=== PATIENT | male | born 1990 | race Caucasian/White ===

== ENCOUNTER 2019-08-27 18:54 | Emergency (ER) | payer SELFPAY ==
[2019-08-27 19:08] VITALS: TEMP 39.3; BMI 22.1
[2019-08-27 19:20] VITALS: BP 129/86; PULSE 124; RESP 18; TEMP 39.3; O2SAT 96
--- NOTE | 2019-08-27 19:22 | W.ED.GENADLT ---
HPI - General Adult General: Chief complaint: General Medical Stated complaint: sore throat Time Seen by Provider: 08/27/19 19:08 History of Present Illness: HPI narrative: Patient complains about sore throat body aches and chills x1 day. MD complaint: flu Onset (ago): day(s) (1) Associated symptoms: Reports fevers/chills; Deny chest pain, dyspnea, headache(s), nausea, rash or vomiting Review of Systems Const: Reports: fever, chills and body aches Eyes: Denies: change in vision or blurry vision ENMT: Reports: throat pain; Denies: nasal congestion Card: Denies: chest pain or shortness of breath on exertion Resp: Denies: shortness of breath, productive cough or non-productive cough GI: Denies: abdominal pain, nausea or vomiting : Denies: difficulty urinating Musc: Denies: extremity pain Skin/Breast: Denies: rash Neuro: Denies: headache Psych: Denies: anxiety or depression Mendel/Lymph: Denies: easy bruising PFSH ED PFSH: Social History Smoking and tobacco status: current every day smoker Physical Exam Const: COMMON NORMALS: no apparent distress, average body habitus and oriented x3 HENMT: COMMON NORMALS: normocephalic HEAD & SCALP: normal to inspection and normocephalic FACE & SINUS: normal facial exam Eye: COMMON NORMALS: conjunctivae normal GENERAL EYE: normal appearance of both eyes CONJUNCTIVA: Yes conjunctivae normal Neck/C-Spine: COMMON NORMALS: no JVD Chest: COMMONS NORMALS: inspection of chest normal Resp: COMMON NORMALS: normal respiratory effort and clear to auscultation bilaterally AUSCULTATION: clear to auscultation bilaterally Cardio: COMMON NORMALS: no JVD and regular rhythm RATE: tachycardic RHYTHM: regular rhythm GI: COMMON NORMALS: normal to inspection, nondistended, normoactive bowel sounds Extremity: COMMON NORMALS: normal to inspection and full ROM Neuro: COMMON NORMALS: oriented x3 Course Vital Signs: Vital signs: Vital Signs Temperature 102.7 F H 08/27/19 19:20 Pulse Rate 124 H 08/27/19 19:20 Respiratory Rate 18 08/27/19 19:20 Blood Pressure 129/86 08/27/19 19:20 Pulse Oximetry 96 08/27/19 19:20 MDM - General Adult Lab Data: Labs: Lab Results 08/27/19 Range/Units 19:15 Group A Strep Rapi d Negative (Negative) Discharge Plan Discharge Prescriptions: No Action No Known Home Medications RF: 0 Coding Level of Care Code ED Computer Analyst for Chg Fwd Exam Comprehensive
[2019-08-27 20:00] LABS: Rapid Strep A Test Negative (Negative)
[2019-08-27 20:12] LABS: Influenza A by IFA Negative (Negative); Influenza B by IFA Negative (Negative)
[2019-08-27 20:32] VITALS: BP 107/70; PULSE 127; RESP 18; TEMP 39.1; O2SAT 95
== END 2019-08-27 20:34 | disposition home or self-care (01) ==
PROVIDERS: Emergency Provider Nurse Practitioner Family
DX: J02.9 Acute pharyngitis, unspecified (principal); R50.9 Fever, unspecified; F17.200 Nicotine dependence, unspecified, uncomplicated
CPT/HCPCS: 87081; 87804; 87880; 99282; 99283

== ENCOUNTER 2020-12-21 09:05 | Emergency (ER) | payer MEDICAID, SELFPAY ==
--- NOTE | 2020-12-21 09:09 | XR_ITS ---
WS: [id number] Portable AP upright chest, 12/21/2020 Clinical Data: n/v and body aches Comparison: None. Findings: No nodules, masses or effusions are seen. The heart is normal. The pulmonary vascularity is not increased. No pneumonia or pneumothorax is seen. XR/XR chest 1V portable [id number] Impression: Negative chest.
[2020-12-21 09:12] VITALS: BP 127/87; PULSE 69; RESP 18; TEMP 36.8; O2SAT 97; BMI 25.1
--- NOTE | 2020-12-21 09:20 | ED_ITS ---
HPI - Nausea/Vomiting/Diarrhea General: Chief complaint: Nausea/Vomiting/Diarrhea Stated complaint: N/V, body ache Time Seen by Provider: 12/21/20 09:09 History of Present Illness: HPI Narrative: Patient is a 30-year-old male comes to the ED with nausea and body aches. Symptoms started 1 week ago. Patient denies any actual episodes of emesis. He endorses having a mild cough that is dry and nonproductive. He endorses having some loose stool a couple times over the past week. Denies fever, chills, nasal drainage/congestion, sore throat, chest pain, shortness of breath, abdominal pain, constipation, dysuria or hematuria. Associated nausea: Yes Associated symtoms: Reports nausea; Denies change in vision, chest pain, dysuria, fatigue, headache(s) or palpitations Review of Systems Const: Reports: body aches; Denies: fever(s), chills or fatigue Eyes: Denies: change in vision or eye discomfort ENMT: Denies: throat pain, odynophagia, nasal discharge or nasal congestion Card: Denies: chest pain, palpitations, edema, swelling of feet/ankles, dyspnea on exertion or orthopnea Resp: Reports: non-productive cough; Denies: dyspnea or productive cough GI: Reports: nausea and diarrhea; Denies: abdominal pain, vomiting, constipation or hematochezia : Denies: flank pain, difficulty urinating, dysuria or hematuria Musc: Denies: neck pain, back pain or extremity swelling Skin/Breast: Denies: rash or new lesions Neuro: Denies: headache(s), numbness in extremities or weakness in extremities PFS ED PFSH: Social History Smoking and tobacco status: current every day smoker Physical Exam Narrative: EXAM NARRATIVE: Patient is a healthy and nontoxic-appearing 30-year-old male in no acute distress or pain and is sitting comfortably on exam bed. Const: COMMON NORMALS: no acute distress, patient oriented x3, healthy appearing and alert GENERAL APPEARANCE: cooperative and comfortable HENMT: COMMON NORMALS: normocephalic HEAD & SCALP: normocephalic MOUTH: Normal oral and palatal mucosa present THROAT: posterior oropharynx normal and uvula midline Neck/C-Spine: COMMON NORMALS: supple GENERAL: Yes normal visual inspection Resp: COMMON NORMALS: normal respiratory effort, No retractions, No use of accessory muscles and clear to auscultation bilaterally AUSCULTATION: clear to auscultation bilaterally Cardio: COMMON NORMALS: regular rate, regular rhythm, S1 normal heart sound present, S2 normal heart sound present, No gallops present (Cardio), No clicks present (Cardio), No murmurs present (Cardio) and Peripheral pulses 2+ throughout RATE: regular rate RHYTHM: regular rhythm HEART SOUNDS: S1 normal heart sound present and S2 normal heart sound present PERIPHERAL PULSES: Peripheral pulses 2+ throughout GI: COMMON NORMALS: Normal to inspection, nondistended, normoactive bowel sounds present, Soft to palpation, non-tender and no masses PALPATION: Yes Soft to palpation : COMMON NORMALS: Yes no CVA tenderness BLADDER/KIDNEY EXAM: Yes no CVA tenderness Back/Pelvis: COMMON NORMALS: no CVA tenderness Extremity: COMMON NORMALS: normal to inspection and no pedal edema Neuro: COMMON NORMALS: patient oriented x3 and moves all extremities SENSORIUM/ORIENTATION: Yes alert Skin: GENERAL SKIN EXAM: dry skin Course Vital Signs: Vital signs: Vital Signs Temperature 98.2 F 12/21/20 09:12 Pulse Rate 69 12/21/20 09:12 Respiratory Rate 18 12/21/20 09:12 Blood Pressure 127/87 12/21/20 09:12 Pulse Oximetry 97 12/21/20 09:12 MDM - Nausea/Vomiting/Diarrhea MDM Narrative: Medical decision making narrative: Patient is a 30-year-old male comes to the ED with nausea and body aches for the past week. Exam shows a nontoxic-appearing 30-year-old male in no acute distress or pain. The rest of exam is benign. Patient's vitals are stable. All labs were unremarkable. Chest x-ray showed no acute findings. Patient was diagnosed with a viral syndrome. He was discharged home with a prescription for Zofran for nausea. He was told to follow-up with his PCP in 7 to 10 days reevaluation. Return to ED precautions given. Patient understood and agree with plan. Lab Data: Attestation: I reviewed the patient's lab results. Labs: Lab Results 12/21/20 12/21/20 12/21/20 Range/Units 09:37 09:37 09:37 WBC 7.2 (4.0-10.0) 10^3/ uL RBC 5.43 H (4.1-5.3) 10^6/u L Hgb 15.7 (11.7-16.6) g/dL Hct 47.4 (42.0-52.0) % MCV 87.3 (80-94) fL MCH 28.9 (28.0-34.0) pg MCHC 33.1 (30.0-36.0) g/dL RDW 13.4 (12.1-15.1) % Plt Count 240 (130-400) 10^3/c mm MPV 11.5 H (7.4-10.4) fL Neut % (Auto) 61.6 % Lymph % (Auto) 24.0 % [place] % (Auto) 9.7 % Eos % (Auto) 3.6 % Baso % (Auto) 0.8 % Neut # (Auto) 4.44 (1.8-7.7) 10^3/u L Lymph # (Auto) 1.7 (0.8-4.8) 10^3/u L [place] # (Auto) 0.7 (0.2-0.9) 10^3/u L Eos # (Auto) 0.3 (0.0-0.8) 10^3/u L Baso # (Auto) 0.1 (0.0-0.1) 10^3/u L Nucleated RBC % (a uto) 0 % Nucleated RBCs # 0.0 /100WBC Sodium Cancelled Potassium Cancelled Chloride Cancelled Carbon Dioxide Cancelled Anion Gap Cancelled BUN Cancelled Creatinine Cancelled GFR Calculation Cancelled Glucose Cancelled Calculated Osmolal ity Cancelled Calcium Cancelled Total Bilirubin Cancelled AST Cancelled ALT Cancelled Alkaline Phosphata se Cancelled Total Protein Cancelled Albumin Cancelled Globulin Cancelled Lipase Cancelled Urine Color Yellow (Yellow) Urine Appearance Clear (CLEAR) Urine pH 5 (5-7) Ur Specific Gravit y 1.020 (1.005-1.030) Urine Protein Neg (Negative) Urine Glucose (UA) Norm (Normal) Urine Ketones Negative (Negative) Urine Blood Neg (Negative) Urine Nitrate Negative (Negative) Urine Bilirubin Neg (Negative) Urine Urobilinogen Norm (Negative) mg/dL Ur Leukocyte Sharla ase Negative (Negative) Urine RBC None (0-2) /hpf Urine WBC Rare (0-5) /hpf Ur Squamous Epith Cells None (0-5) /hpf Amorphous Sediment Not Reportable Urine Bacteria None (NONE) /hpf Urine Mucus 1+ /hpf 12/21/20 Range/Units 09:59 WBC (4.0-10.0) 10^3/ uL RBC (4.1-5.3) 10^6/u L Hgb (11.7-16.6) g/dL Hct (42.0-52.0) % MCV (80-94) fL MCH (28.0-34.0) pg MCHC (30.0-36.0) g/dL RDW (12.1-15.1) % Plt Count (130-400) 10^3/c mm MPV (7.4-10.4) fL Neut % (Auto) % Lymph % (Auto) % [place] % (Auto) % Eos % (Auto) % Baso % (Auto) % Neut # (Auto) (1.8-7.7) 10^3/u L Lymph # (Auto) (0.8-4.8) 10^3/u L [place] # (Auto) (0.2-0.9) 10^3/u L Eos # (Auto) (0.0-0.8) 10^3/u L Baso # (Auto) (0.0-0.1) 10^3/u L Nucleated RBC % (a uto) % Nucleated RBCs # /100WBC Sodium 140 Potassium 3.9 Chloride 105 Carbon Dioxide 26 Anion Gap 12.9 BUN 11 Creatinine 1.0 GFR Calculation 89.0 L Glucose 76 Calculated Osmolal ity 288 Calcium 8.2 L Total Bilirubin 0.5 AST 25 ALT 26 Alkaline Phosphata se 58 Total Protein 6.5 L Albumin 4.4 Globulin 2.1 Lipase 22 Urine Color (Yellow) Urine Appearance (CLEAR) Urine pH (5-7) Ur Specific Gravit y (1.005-1.030) Urine Protein (Negative) Urine Glucose (UA) (Normal) Urine Ketones (Negative) Urine Blood (Negative) Urine Nitrate (Negative) Urine Bilirubin (Negative) Urine Urobilinogen (Negative) mg/dL Ur Leukocyte Sharla ase (Negative) Urine RBC (0-2) /hpf Urine WBC (0-5) /hpf Ur Squamous Epith Cells (0-5) /hpf Amorphous Sediment Urine Bacteria (NONE) /hpf Urine Mucus /hpf Imaging Data^: CXR: Attestation: I personally reviewed and interpreted this imaging study as follows: Radiologist's impression: [employer] [id number] [place], [place] [address]WHmp ReportSigned Patient: Akin Melgoza #: [id number]: 1990Acct#:[id number]/Sex: 30 / MADM Date: 12/21/20Loc: ERRoom/Bed:Attending Dr: Ordering Provider/Ordering MD: Janes Jensen Date of Service: 12/21/20 Procedure(s): XR chest 1V portable [id number] Accession Number(s): [id number] Report Number: [id number] WS: [id number] Portable AP upright chest, 12/21/2020 Clinical Data: n/v and body aches Comparison: None. Findings: No nodules, masses or effusions are seen. The heart is normal. The pulmonary vascularity is not increased. No pneumonia or pneumothorax is seen. XR/XR chest 1V portable [id number] Impression: Negative chest. Dictated By:Michelle Maguire MDSigned By:Michelle Maguire MDSigned Date/Time:12/21/20923DD/ 2 Discharge Plan Discharge Patient Disposition: Home Clinical Impression: Viral syndrome Condition: Stable Prescriptions: New Zofran 4 mg tablet 4 mg PO Q8H Qty: 12 RF: 0 Discharge Orders: Discharge ED (Routine); Ordered 12/21/20 Ordered By: Janes Jensen Discharge Diet: Regular Discharge Activity: Resume usual activity Patient Instructions: Viral Syndrome (ED) Activity Restrictions/Additional Instructions: Follow-up with medical provider as directed in 7 to 10 days for reevaluation. Take medications as prescribed. Take [id number] Tylenol or ibuprofen for any fevers or pain. Drink plenty of fluids and stay hydrated. Return to the ER or your medical provider if condition worsens. Please read and understand discharge instructions. Thank you for choosing [facility] for your healthcare needs today. Please realize this is an emergency room and that we are providing you with a medical screening exam and this may not be complete and all inclusive of all the testing and or work up that you may need to determine your ailment or severity of your illness. It is very important that you follow up as instructed or that you return to the Emergency Department should you have concerns or if your condition changes or worsens in any way. Stand Alone Forms: Work/School Release Coding Level of Care Code ED Motocross Racer for Blessing Fwpaco Exam Comprehensive
[2020-12-21] MEDS: ondansetron 2 mg/ML SDV 2 mL 4 MG IVP (09:43)
[2020-12-21] MEDS: sodium chloride 0.9% 1,000 ML 999 ML IV (09:43)
[2020-12-21 09:46] LABS: Basophils # 0.1 10^3/uL (0.0-0.1); Basophils % 0.8 %; Eosinophils # 0.3 10^3/uL (0.0-0.8); Eosinophils % 3.6 %; Hematocrit 47.4 % (42.0-52.0); Hemoglobin 15.7 g/dL (11.7-16.6); Lymphocytes # 1.7 10^3/uL (0.8-4.8); Mean Corpuscular HGB Conc 33.1 g/dL (30.0-36.0); Mean Corpuscular Hemoglobin 28.9 pg (28.0-34.0); Mean Corpuscular Volume 87.3 fL (80-94); Mean Platelet Volume 11.5 fL (7.4-10.4); Monocytes # 0.7 10^3/uL (0.2-0.9); Monocytes % 9.7 %; Neutrophils # 4.44 10^3/uL (1.8-7.7); Neutrophils % 61.6 %; Nucleated Red Blood Cells % 0 %; Platelet Count 240 10^3/cmm (130-400); Red Blood Count 5.43 10^6/uL (4.1-5.3); Red Cell Distribution Width 13.4 % (12.1-15.1); White Blood Count 7.2 10^3/uL (4.0-10.0)
[2020-12-21 09:48] VITALS: BP 131/83; PULSE 65; O2SAT 97
[2020-12-21 10:22] LABS: Urine Appearance Clear (CLEAR); Urine Color Yellow (Yellow); pH Urine 5 (5-7)
[2020-12-21 10:23] LABS: Bilirubin Urine Neg (Negative); Blood Urine Neg (Negative); Glucose Urine UA Norm (Normal); Ketones Urine Negative (Negative); Leukocyte Esterase Urine Negative (Negative); Nitrate Urine Negative (Negative); Protein Urine Neg (Negative); Urobilinogen Urine Norm (Negative)
[2020-12-21 10:33] LABS: Alanine Aminotransferase 26 U/L (0-41); Albumin Level 4.4 g/dL (3.5-5.2); Alkaline Phosphatase 58 IU/L (40-130); Anion Gap 12.9 (5-19); Aspartate Amino Transferase 25 U/L (0-40); Blood Urea Nitrogen 11 mg/dL (6-20); Calcium 8.2 mg/dL (8.5-10.5); Carbon Dioxide 26 mmol/L (22-29); Chloride 105 mmol/L (98-107); Globulin 2.1 g/dL (1.3-4.6); Glucose 76 mg/dL (65-115); Lipase 22 U/L (13-60); Osmolality Calculated 288 mOsm/kg (285-295); Potassium 3.9 mmol/L (3.5-5.1); Sodium 140 mmol/L (136-145); Total Bilirubin 0.5 mg/dL (0.15-1.2); Total Protein 6.5 g/dL (6.6-8.7)
[2020-12-21 10:46] LABS: Mucus Urine 1+ /hpf; WBC Urine RARE /hpf (0-5)
[2020-12-21 10:48] VITALS: BP 117/71; PULSE 65; O2SAT 98
== END 2020-12-21 11:15 | disposition home or self-care (01) ==
PROVIDERS: Emergency Provider Physician Assistant
DX: B34.9 Viral infection, unspecified (principal); F17.210 Nicotine dependence, cigarettes, uncomplicated
CPT/HCPCS: 71045; 80053; 81001; 83690; 85025; 96361; 96374; 99284; J2405; J7030

== ENCOUNTER 2020-12-27 19:55 | Emergency (ER) | payer MEDICAID, SELFPAY ==
[2020-12-27 20:13] VITALS: BP 126/72; PULSE 61; RESP 16; TEMP 37.3; O2SAT 95; BMI 25.1
--- NOTE | 2020-12-27 20:33 | W.ED.SKABFB ---
HPI - Skin/Abscess/Foreign Bdy General: Chief complaint: Skin/Abscess/Foreign Body Stated complaint: rash on legs Time Seen by Provider: 12/27/20 20:19 Source: patient Mode of arrival: ambulatory Limitations: no limitations History of Present Illness: HPI narrative: Patient is a 30-year-old male who presents to ED today with a complaint of a rash to his left lower extremity that he noticed over the past few days. Patient tells me rash is pruritic. He tells me it is very possible that he was exposed to poison rowdy/oak/sumac. He states he is highly allergic to this. He has not noticed any lesions between his toes. No lesions to his hands or forearms. MD complaint: rash Onset (ago): day(s) Tetanus up to date: yes Location: LLE Severity: mild Quality: pruritic Relieving factors: none Exacerbating factors: none Context: none Associated symptoms: Reports no associated symptoms; Deny chills, fever(s), nausea or vomiting Treatments prior to arrival: none Review of Systems Const: Denies: fever(s), chills, body aches, fatigue or malaise Eyes: Denies: change in vision or blurry vision ENMT: Denies: throat pain or odynophagia Card: Denies: chest pain Resp: Denies: dyspnea GI: Denies: abdominal pain, nausea or vomiting Musc: Denies: neck pain, back pain, extremity pain, extremity swelling, joint pain, joint swelling, joint redness, joint warmth, joint stiffness or limited range of motion Skin/Breast: Reports: rash Neuro: Denies: headache(s), numbness in extremities, weakness in extremities or sensory changes PFS ED PFSH: Social History Smoking and tobacco status: current every day smoker Physical Exam Const: COMMON NORMALS: no acute distress, average body habitus, patient oriented x3, no limitations, healthy appearing, alert and well nourished Extremity: COMMON NORMALS: normal to inspection, full ROM, capillary refill normal, no joint enlargement, no clubbing, cyanosis or edema, no calf tenderness and no pedal edema NARRATIVE EXTREMITY EXAM: see skin assessment GENERAL: Yes normal exam except as noted Neuro: COMMON NORMALS: patient oriented x3, moves all extremities, no focal motor deficits, no sensory deficits noted and gait normal SENSORIUM/ORIENTATION: Yes alert Skin: NARRATIVE SKIN EXAM: patient has a mild erythematous excoriated rash to the anterior aspect of his left lower leg; there are 2-3 small areas of weeping; erythema is localized to the rash itself and no concerns for cellulitis; no swelling Course Vital Signs: Vital signs: Vital Signs Temperature 99.1 F 12/27/20 20:13 Pulse Rate 61 12/27/20 20:13 Respiratory Rate 16 12/27/20 20:13 Blood Pressure 126/72 12/27/20 20:13 Pulse Oximetry 95 12/27/20 20:13 MDM - Skin/Abscess/Foreign Bdy MDM Narrative: Medical decision making narrative: Requesting IM steroids for possible plant dermatitis. Will give him some mupirocin ointment as he has been aggressively excoriating the rash and there are a few areas of yellow crusting drainage that could be secondarily infected with impetigo. There is no indication for oral abx at this time. Recommend keeping area clean. Return to ED precautions given. Discharge Plan Discharge Patient Disposition: Home Clinical Impression: Dermatitis of lower extremity Condition: Stable Prescriptions: New mupirocin 2 % ointment 1 applic topical BID Qty: 15 RF: 0 No Action Zofran 4 mg tablet 4 mg PO Q8H Qty: 12 RF: 0 Discharge Orders: Discharge ED (Routine); Ordered 12/27/20 Ordered By: Estella Rajput Patient Instructions: Dermatitis (Contact) Activity Restrictions/Additional Instructions: As we discussed please keep area clean with warm soapy water twice daily. Avoid scratching. You may apply the mupirocin ointment twice daily. You may follow-up with primary care or an urgent care or return to the ED for worsening rash or any other concerns you may have. Coding Level of Care Code ED Video Game Script Writer for Blessing Deluna
[2020-12-27] MEDS: dexamethasone 10 mg/mL INJ 6 MG IM (21:06)
[2020-12-27 21:10] VITALS: RESP 16; TEMP 37.3; O2SAT 95
== END 2020-12-27 21:12 | disposition home or self-care (01) ==
PROVIDERS: Emergency Provider Physician Assistant
DX: L30.9 Dermatitis, unspecified (principal); F17.210 Nicotine dependence, cigarettes, uncomplicated
CPT/HCPCS: 96372; 99283; J1100

== ENCOUNTER 2021-01-06 10:44 | Emergency (ER) | payer MEDICAID, SELFPAY ==
[2021-01-06 10:46] VITALS: BP 159/93; PULSE 78; RESP 15; TEMP 36.1; O2SAT 94; BMI 25.1
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
[2021-01-06] MEDS: HYDROcodone-acetaminophen 7.5-325 mg Tablet 1 TAB PO (11:31)
[2021-01-06] MEDS: ondansetron 4 MG Tablet PO (11:31)
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
--- NOTE | 2021-01-06 13:50 | PC.NURSE ---
Pt still rates pain 5/10, pt was resting quietly with eyes closed prior to this RN entering room, pt appears to be in no distress.
== END 2021-01-06 14:37 | disposition home or self-care (01) ==
PROVIDERS: Emergency Provider Nurse Practitioner Family
DX: S02.601A Fracture of unspecified part of body of right mandible, initial encounter for closed fracture (principal); Y04.8XXA Assault by other bodily force, initial encounter; F17.210 Nicotine dependence, cigarettes, uncomplicated
CPT/HCPCS: 70110; 70486; 99283; Q0162

== ENCOUNTER 2023-03-22 03:19 | Inpatient (IN) | payer MEDICAID, SELFPAY ==
[2023-03-22 03:20] VITALS: BP 147/94; PULSE 69; RESP 18; TEMP 37.1; O2SAT 99; BMI 28.0
[2023-03-22 03:23] VITALS: BP 147/94; PULSE 81; RESP 18; TEMP 37.1; O2SAT 99
[2023-03-22 03:51] LABS: Add Urine Microscopic? NO; Charge for UA Resulting for Rev
[2023-03-22 03:52] LABS: Basophils # 0.1 10^3/uL (0.0-0.1); Basophils % 0.8 %; Eosinophils # 0.4 10^3/uL (0.0-0.8); Eosinophils % 4.1 %; Hematocrit 48.9 % (37-53); Lymphocytes # 1.6 10^3/uL (0.8-4.8); Lymphocytes % 16.8 %; Mean Corpuscular HGB Conc 33.1 g/dL (30-55); Mean Corpuscular Volume 87.6 fl (82-101); Mean Platelet Volume 10.8 fL (7.4-10.4); Monocytes # 0.8 10^3/uL (0.2-0.9); Monocytes % 8.8 %; Neutrophils # 6.46 10^3/uL (1.8-7.7); Neutrophils % 69.3 %; Nucleated Red Blood Cells % 0 %; Platelet Count 319 10^3/cmm (157-399); Red Blood Count 5.58 10^6/uL (3.85-5.65); Red Cell Distribution Width 13.9 % (12.1-15.1); White Blood Count 9.32 10^3/uL (3.29-11.43)
--- NOTE | 2023-03-22 03:55 | PC.NURSE ---
A copy of the Patient 96 Hour Hold Rights have been given to the patient. Bottler Helper Marielena Liriano was present at the time of presentation of Rights.
[2023-03-22 03:56] LABS: Bilirubin Urine Neg (Negative); Blood Urine Neg (Negative); Glucose Urine UA Norm (Normal); Ketones Urine Negative (Negative); Leukocyte Esterase Urine Negative (Negative); Nitrate Urine Negative (Negative); Protein Urine Neg (Negative); Urine Appearance Clear (CLEAR); Urine Color Yellow (Yellow); Urobilinogen Urine Neg (Negative); pH Urine 7 (5-7)
--- NOTE | 2023-03-22 03:56 | PC.NURSE ---
Director [employer] spoke with [facility] about the pt keeping their sports bra on. [facility] agreed the pt was allowed to wear the bra as long as it has no wire in it. Pt stated they did try to hang themself this evening with a dog leash.
[2023-03-22 04:05] LABS: Amphetamines Screen Urine Negative (Negative); Barbiturates Screen Urine Negative (Negative); Benzodiazepines Screen Urine Negative (Negative); Cocaine Screen Urine Negative (Negative); Opiate Screen Urine Negative (Negative); PCP Screen Urine Negative (Negative); THC Screen Urine Negative (Negative)
--- NOTE | 2023-03-22 04:11 | W.ED.PSYCHS ---
HPI - Psych General: Chief Complaint: Psychiatric Symptoms Stated Complaint: SI Time Seen by Provider: 03/22/23 03:22 History of Present Illness: 32-year-old born male transgender patient presenting to the ER with suicidal ideation. He relates to me that he attempted to hang himself in a closet with a dog leash. He admits to continued slight suicidal ideations. He is not currently treated for depression. He relates 1 other suicide attempt 6 years ago, but was not treated as an inpatient for that. He has no other health problems. He has not been ill recently. He prefers to go by PeopleAdmin , and prefers a she pronoun. Associated symptoms: Reports depression; Deny auditory hallucinations or visual hallucinations Review of Systems Const: Denies: fever(s) ENMT: Denies: throat pain Card: Denies: chest pain or palpitations Resp: Reports: non-productive cough; Denies: dyspnea or productive cough GI: Denies: abdominal pain, nausea or vomiting Musc: Denies: neck pain or back pain Skin/Breast: Denies: rash Psych: Reports: depression; Denies: visual hallucinations or auditory hallucinations PFSH ED PFSH: Social History Smoking and tobacco status: current every day smoker Physical Exam Const: GENERAL APPEARANCE: well developed; not ill appearing and not frail appearing HENMT: COMMON NORMALS: normocephalic, atraumatic and Normal external nose present HEAD & SCALP: normocephalic and atraumatic FACE & SINUS: normal facial exam and face symmetric NOSE: Normal external nose present Eye: COMMON NORMALS: Equal, round and reactive pupils present and EOMs intact bilaterally PUPIL: Yes Equal, round and reactive pupils present Neck/C-Spine: GENERAL: Yes trachea midline Chest: CHEST: Yes Symmetrical chest wall rise Resp: COMMON NORMALS: normal respiratory effort, No retractions, No use of accessory muscles and clear to auscultation bilaterally AUSCULTATION: clear to auscultation bilaterally Cardio: COMMON NORMALS: regular rate and regular rhythm RATE: regular rate RHYTHM: regular rhythm GI: INSPECTION: Yes normal to inspection Extremity: OTHER: upper extremity pulses normal Neuro: JUD COMA SCALE: document GCS findings Jud coma scale eye opening: Spontaneous Jud coma scale verbal response: Orientated [place] coma scale motor response: Obey commands Jud coma scale total score: 15 SENSORY EXAM: Yes extremities (intact) Psych: COMMON NORMALS: speech normal SPEECH: Yes normal speech Skin: COMMON NORMALS: no rashes or lesions noted GENERAL SKIN EXAM: no rashes or lesions noted Course Vital Signs: Vital signs: Vital Signs Temperature 98.7 F 03/22/23 03:23 Pulse Rate 81 03/22/23 03:23 Respiratory Rate 18 03/22/23 03:23 Blood Pressure 147/94 03/22/23 03:23 Pulse Oximetry 99 03/22/23 03:23 Oxygen Delivery Me thod Room Air 03/22/23 03:23 MDM - Psych Medical Decision Making 32-year-old born male transgender patient presenting with suicidal ideation, and attempt. Obviously attempts at self hanging is a serious attempt. Because of this, he will be placed under 96-hour hold for psychiatric evaluation according to policy. I have spoken with psychiatry, who agrees the patient should be placed under 96 and to admission here. Medically, he is stable. He became confrontational with myself and staff upon being notified of being placed under 96-hour hold. He was told that he remains under 96-hour hold, that he will be admitted as an inpatient to the [facility] for evaluation and treatment, and that he will be treated with respect, much the same if he had been voluntarily admitted, but that because he attempted suicide, he will not be allowed to leave until psychiatry deems it safe. Lab Data 03/22/23 03:44 03/22/23 03:44 Laboratory Results WBC 9.32 10^3/uL (3.29-11.43) 03/22/23 03:44 RBC 5.58 10^6/uL (3.85-5.65) 03/22/23 03:44 Hgb 16.20 g/dL (11.27-16.99) 03/22/23 03:44 Hct 48.9 % (37-53) 03/22/23 03:44 MCV 87.6 fl (82-101) 03/22/23 03:44 MCH 29.0 pg (27-33) 03/22/23 03:44 MCHC 33.1 g/dL (30-55) 03/22/23 03:44 RDW 13.9 % (12.1-15.1) 03/22/23 03:44 Plt Count 319 10^3/cmm (157-399) 03/22/23 03:44 MPV 10.8 fL (7.4-10.4) H 03/22/23 03:44 Neut % (Auto) 69.3 % 03/22/23 03:44 Lymph % (Auto) 16.8 % 03/22/23 03:44 Maury % (Auto) 8.8 % 03/22/23 03:44 Eos % (Auto) 4.1 % 03/22/23 03:44 Baso % (Auto) 0.8 % 03/22/23 03:44 Neut # (Auto) 6.46 10^3/uL (1.8-7.7) 03/22/23 03:44 Lymph # (Auto) 1.6 10^3/uL (0.8-4.8) 03/22/23 03:44 Maury # (Auto) 0.8 10^3/uL (0.2-0.9) 03/22/23 03:44 Eos # (Auto) 0.4 10^3/uL (0.0-0.8) 03/22/23 03:44 Baso # (Auto) 0.1 10^3/uL (0.0-0.1) 03/22/23 03:44 Nucleated RBC % (auto) 0 % 03/22/23 03:44 Nucleated RBCs # 0.0 /100WBC 03/22/23 03:44 Sodium 140 mmol/L (136-145) 03/22/23 03:44 Potassium 4.3 mmol/L (3.5-5.1) 03/22/23 03:44 Chloride 103 mmol/L (98-107) 03/22/23 03:44 Carbon Dioxide 28 mmol/L (22-29) 03/22/23 03:44 Anion Gap 13.3 (5-19) 03/22/23 03:44 BUN 7 mg/dL (6-20) 03/22/23 03:44 Creatinine 1.1 mg/dL (0.7-1.2) 03/22/23 03:44 GFR Calculation 78.6 mL/min (90-130) L 03/22/23 03:44 Glucose 119 mg/dL (65-115) H 03/22/23 03:44 Calculated Osmolality 289 mOsm/kg (285-295) 03/22/23 03:44 Calcium 9.7 mg/dL (8.5-10.5) 03/22/23 03:44 Total Bilirubin 0.4 mg/dL (0.15-1.2) 03/22/23 03:44 AST 17 U/L (0-40) 03/22/23 03:44 ALT 17 U/L (0-41) 03/22/23 03:44 Alkaline Phosphatase 67 U/L (40-130) 03/22/23 03:44 Total Protein 8.0 g/dL (6.6-8.7) 03/22/23 03:44 Albumin 5.0 g/dL (3.5-5.2) 03/22/23 03:44 Globulin 3.0 g/dL (1.3-4.6) 03/22/23 03:44 Urine Color Yellow (Yellow) 03/22/23 03:41 Urine Appearance Clear (CLEAR) 03/22/23 03:41 Urine pH 7 (5-7) 03/22/23 03:41 Ur Specific [place] 1.010 (1.005-1.030) 03/22/23 03:41 Urine Protein Neg (Negative) 03/22/23 03:41 Urine Glucose (UA) Norm (Normal) 03/22/23 03:41 Urine Ketones Negative (Negative) 03/22/23 03:41 Urine Blood Neg (Negative) 03/22/23 03:41 Urine Nitrate Negative (Negative) 03/22/23 03:41 Urine Bilirubin Neg (Negative) 03/22/23 03:41 Urine Urobilinogen Neg mg/dL (Negative) 03/22/23 03:41 Ur Leukocyte Esterase Negative (Negative) 03/22/23 03:41 Salicylates < 0.3 mg/dL (3-10) L 03/22/23 03:44 Urine Opiates Screen Negative ng/mL (Negative) 03/22/23 03:41 Acetaminophen < 5.0 ug/mL (10-30) L 03/22/23 03:44 Ur Barbiturates Screen Negative ng/mL (Negative) 03/22/23 03:41 Ur Phencyclidine Scrn Negative ng/mL (Negative) 03/22/23 03:41 Ur Amphetamines Screen Negative ng/mL (Negative) 03/22/23 03:41 U Benzodiazepines Scrn Negative ng/mL (Negative) 03/22/23 03:41 Urine Cocaine Screen Negative ng/mL (Negative) 03/22/23 03:41 U Marijuana (THC) Screen Negative ng/mL (Negative) 03/22/23 03:41 Ethyl Alcohol < 10 mg/dL (0-10) 03/22/23 03:44 Discharge Plan Discharge Patient Disposition: Admitted As Inpatient Admit Provider: Eddie Liriano Clinical Impression: Suicidal ideation, Suicide attempt Condition: Stable Coding Level of Care Code 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
[2023-03-22 04:13] LABS: Acetaminophen < 5.0 ug/mL (10-30); Alanine Aminotransferase 17 U/L (0-41); Alcohol Level < 10 mg/dL (0-10); Alkaline Phosphatase 67 U/L (40-130); Anion Gap 13.3 (5-19); Aspartate Amino Transferase 17 U/L (0-40); Blood Urea Nitrogen 7 mg/dL (6-20); Calcium 9.7 mg/dL (8.5-10.5); Carbon Dioxide 28 mmol/L (22-29); Chloride 103 mmol/L (98-107); Glomerular Filtration Rate 78.6 mL/min (90-130); Glucose 119 mg/dL (65-115); Osmolality Calculated 289 mOsm/kg (285-295); Potassium 4.3 mmol/L (3.5-5.1); Salicylate < 0.3 mg/dL (3-10); Sodium 140 mmol/L (136-145); Total Bilirubin 0.4 mg/dL (0.15-1.2)
[2023-03-22 04:45] VITALS: BP 146/101; PULSE 89; RESP 18; TEMP 36.8; O2SAT 97
[2023-03-22 06:00] VITALS: RESP 18
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
[2023-03-22] MEDS: hyDROXYzine 25 mg Capsule 50 MG PO (10:14)
[2023-03-22] MEDS: ARIPiprazole 10 mg Tablet PO ×2 (11:37→20:33)
[2023-03-22 13:43] VITALS: BP 112/71; PULSE 83; RESP 20; TEMP 36.6; O2SAT 97
[2023-03-22] MEDS: ondansetron 4 MG Tablet PO (20:01)
[2023-03-22] MEDS: trazodone 50 mg Tablet PO (20:33)
[2023-03-22 20:36] VITALS: BP 135/94; PULSE 108; RESP 18; TEMP 37.1; O2SAT 96
[2023-03-23 06:00] VITALS: BP 136/99; PULSE 104; RESP 18; O2SAT 96
--- NOTE | 2023-03-23 13:48 | W.PM.NPUPNS ---
Subjective NPU Subjective: Patient presented today reporting that she prefers to go by Echo and identifies as a trans female. She reports that the initiation of the medication is gone well and had a visit from her girlfriend that was good and bad as they try to navigate their relationship currently. She began to focus on when discharge would occur and we discussed the treatment team returning tomorrow so that we can make sure we have appropriate outpatient services in place prior to discharge. Mental Status Exam MSE Comments: This is a well-nourished, well-developed, white, transfemale, in hospital scrubs, with limited grooming and eye contact. With multicolor hair and poor hygiene with breath and body odor notable. No abnormal movements, except for mild psychomotor retardation. Cooperative with exam in mild distress. Speech was normal rate and volume. Mood described as anxious, but little better; affect congruent. Thought process, organized. Thought content: patient denied any suicidal or homicidal ideation, there were no delusions reported or noted, patient denied any auditory or visual hallucinations. Attention, concentration, and memory appeared intact, but none were formally tested. Alert and oriented times three. Insight and judgment are limited. Impulse control is limited. Vitals/I&O/Wt Last Vital Signs Temp 98.8 F 03/22/23 20:36 Pulse 104 H 03/23/23 06:00 Resp 18 03/23/23 06:00 BP 136/99 03/23/23 06:00 Pulse Ox 96 03/23/23 06:00 O2 Del Method Room Air 03/23/23 06:00 Weight last 48 hrs Weight 88.167 kg Weight 86.183 kg Data NPU 03/22/23 03:44 03/22/23 03:44 A&P Assessment and plan (1) PTSD (post-traumatic stress disorder): (2) Borderline personality disorder in adult: (3) Depression: Plan This is a 32-year-old, white male/transfemale with a long history of trauma, mental health treatment for mood dysregulation and outbursts who presents off of his medication after a reported suicide attempt. 1. Started Abilify 10 mg p.o. nightly and Trazodone 50 mg p.o. nightly.. 2. Encourage individual, group, and milieu therapy. 3. Continue q-15-minute checks for safety. Involuntary Hold Information 96 Hour Hold: 96 Hour Involuntary Admission: Yes 96 Hour Hold Ending Date: 03/28/23 96 Hour Hold Ending Time: 03:55 Attestations NPU Medical Necessity Statement*: Inpatient hospitalization is medically necessary and the clinically appropriate intervention, at this time. We will monitor medications and make changes as indicated. Likely length of stay is 2-4 days. Coding Level of Care Code Acute Code for Chg Fwd Diagnoses PTSD (post-traumatic stress disorder) F43.10 Borderline personality disorder in adult F60.3 Depression F32.A
[2023-03-23 14:00] VITALS: BP 131/80; PULSE 78; RESP 16; TEMP 36.7; O2SAT 96
[2023-03-23] MEDS: ARIPiprazole 10 mg Tablet PO (20:02)
[2023-03-23] MEDS: trazodone 50 mg Tablet PO (20:02)
[2023-03-23 20:19] VITALS: BP 143/104; PULSE 83; RESP 18; TEMP 36.9; O2SAT 95
[2023-03-24] MEDS: trazodone 50 mg Tablet PO ×2 (03:33→20:19)
[2023-03-24] MEDS: ondansetron 4 MG Tablet PO (05:56)
[2023-03-24 06:00] VITALS: BP 126/88; PULSE 115; RESP 18; TEMP 37.1; O2SAT 98
--- NOTE | 2023-03-24 09:04 | PC.NURSE ---
During morning assessment, patient denies SI, AVH, depression and anxiety. Patient stated that his has HI for only one person--my bio dad . Patient said that there is slim chance of him seeing her bio dad and that she goes out of her way to avoid him. patient said trazodone doesn't help him sleep
--- NOTE | 2023-03-24 11:40 | W.PM.NPUPNS ---
Subjective NPU Subjective: Patient presented today reporting things are ok and she is tolerating the medications. we discussed the likelihood of discharge in the next 48 hours. he denied any new challenges Mental Status Exam MSE Comments: This is a well-nourished, well-developed, white, transfemale, in hospital scrubs, with limited grooming and eye contact. With multicolor hair and poor hygiene with breath and body odor notable. No abnormal movements, except for mild psychomotor retardation. Cooperative with exam in mild distress. Speech was normal rate and volume. Mood described as anxious, but little better; affect congruent. Thought process, organized. Thought content: patient denied any suicidal or homicidal ideation, there were no delusions reported or noted, patient denied any auditory or visual hallucinations. Attention, concentration, and memory appeared intact, but none were formally tested. Alert and oriented times three. Insight and judgment are limited. Impulse control is limited. Vitals/I&O/Wt Last Vital Signs Temp 98.7 F 03/24/23 06:00 Pulse 115 H 03/24/23 06:00 Resp 18 03/24/23 06:00 BP 126/88 03/24/23 06:00 Pulse Ox 98 03/24/23 06:00 O2 Del Method Room Air 03/23/23 20:19 Weight last 48 hrs Weight 88.167 kg Data NPU 03/22/23 03:44 03/22/23 03:44 A&P Assessment and plan (1) PTSD (post-traumatic stress disorder): (2) Borderline personality disorder in adult: (3) Depression: Plan This is a 32-year-old, white male/transfemale with a long history of trauma, mental health treatment for mood dysregulation and outbursts who presents off of his medication after a reported suicide attempt. 1. Started Abilify 10 mg p.o. nightly and Trazodone 50 mg p.o. nightly.. 2. Encourage individual, group, and milieu therapy. 3. Continue q-15-minute checks for safety. Involuntary Hold Information 96 Hour Hold: 96 Hour Involuntary Admission: Yes 96 Hour Hold Ending Date: 03/28/23 96 Hour Hold Ending Time: 03:55 Attestations NPU Medical Necessity Statement*: Inpatient hospitalization is medically necessary and the clinically appropriate intervention, at this time. We will monitor medications and make changes as indicated. Likely length of stay is 1-3 days. Coding Level of Care Code Acute Code for Chg Fwd Diagnoses PTSD (post-traumatic stress disorder) F43.10 Borderline personality disorder in adult F60.3 Depression F32.A
[2023-03-24] MEDS: hydrocortisone 1% cream 28 gm 1 APPLIC TOPICAL (13:07)
[2023-03-24 14:00] VITALS: BP 136/95; PULSE 104; RESP 17; TEMP 37; O2SAT 98
[2023-03-24] MEDS: ARIPiprazole 10 mg Tablet PO (20:19)
[2023-03-24 20:31] VITALS: BP 134/91; PULSE 116; RESP 18; O2SAT 97
[2023-03-25 06:00] VITALS: BP 129/88; PULSE 79; RESP 18; O2SAT 97
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
[2023-03-25 13:25] VITALS: BP 140/90; PULSE 92; RESP 15; TEMP 37.2; O2SAT 98
[2023-03-25 14:20] VITALS: BP 140/90; PULSE 92; RESP 15; TEMP 37.2; O2SAT 98
== END 2023-03-25 14:17 | disposition home or self-care (01) | DRG 923 ==
LOC: ER 04:28 → NP 04:32
PROVIDERS: Admitting Provider Psychiatry & Neurology Psychiatry; Emergency Provider Emergency Medicine; Visit Provider Psychiatry & Neurology Psychiatry
DX: T71.162A Asphyxiation due to hanging, intentional self-harm, initial encounter (principal); F43.10 Post-traumatic stress disorder, unspecified; F32.A Depression, unspecified; F39 Unspecified mood [affective] disorder; Z81.8 Family history of other mental and behavioral disorders; Z81.3 Family history of other psychoactive substance abuse and dependence; Z62.810 Personal history of physical and sexual abuse in childhood; Z62.811 Personal history of psychological abuse in childhood; Z91.410 Personal history of adult physical and sexual abuse; Z87.891 Personal history of nicotine dependence
CPT/HCPCS: 36415; 80053; 80306; 80307; 81003; 85025; 97150; 97165; 99238; 99285; Q0162

== ENCOUNTER 2023-05-24 19:02 | Emergency (ER) | payer MEDICAID, SELFPAY ==
[2023-05-24 19:03] VITALS: BP 133/88; PULSE 118; RESP 17; TEMP 37.3; O2SAT 98; BMI 29.8
--- NOTE | 2023-05-24 19:42 | ED.C_ITS ---
Documented by User: Erica Abraham MD 05/25/23 17:36 HPI - Psych General: Chief Complaint: Psychiatric Symptoms Stated Complaint: SI Time Seen by Provider: 05/24/23 19:20 History of Present Illness: 32-year-old male with a history of mood disorder presents emergency room with police after voicing suicidal ideation. Patient further reveals that his plan is to state and approach upcoming traffic on the highway. Patient denies any nausea, vomiting, chest pain, shortness of breath no leg swelling or calf tenderness. Patient reveals to occasional marijuana use but denies any other drugs. Associated symptoms: Reports depression and suicidal ideation; Deny auditory hallucinations or homicidal ideation Review of Systems General: Reports: 10 or more systems reviewed and unremarkable except in HPI and below Const: Denies: fever(s), chills, body aches or change in appetite Card: Denies: chest pain, palpitations, irregular heart rhythm, swelling of feet/ankles or lightheadedness Resp: Denies: dyspnea or productive cough : Denies: difficulty urinating, urinary frequency, urinary urgency or urinary hesitancy Psych: Reports: depression, loss of interest and suicidal ideation; Denies: hopelessness, irritability, paranoia, auditory hallucinations, tactile hallucinations or homicidal ideation PENDING SALE TO [facility] ED PFSH: Medical History (Updated 05/24/23 @ 21:07 by Erica Abraham MD) Bipolar 2 disorder Psychiatric care Social History Smoking and tobacco/nicotine status: current every day tobacco/nicotine user Physical Exam Const: COMMON NORMALS: no acute distress, average body habitus, patient oriented x3, no limitations, healthy appearing, alert and well nourished HENMT: COMMON NORMALS: normocephalic, atraumatic, hearing grossly normal bilaterally, external ears normal, EAC's normal, TM's normal bilaterally, Normal external nose present, Normal nasal mucous membranes and turbinates present, moist oral mucous membranes, oropharynx normal, dentition normal and gingiva normal HEAD & SCALP: normocephalic and atraumatic NOSE: Normal external nose present and Normal nasal mucous membranes and turbinates present EXTERNAL EAR: Yes external ears normal EXTERNAL AUDITORY CANAL: EAC's normal TYMPANIC MEMBRANE: TM's normal bilaterally Neck/C-Spine: COMMON NORMALS: no JVD Chest: COMMONS NORMALS: normal inspection of the chest, normal palpation of entire chest wall, normal inspection of the breasts and normal palpation of the breasts Breast/axilla inspection: Yes normal inspection of the breasts BREAST/AXILLA PALPATION: Yes normal palpation of the breasts Cardio: COMMON NORMALS: no JVD, regular rate, regular rhythm, S1 normal heart sound present, S2 normal heart sound present, No gallops present (Cardio), No clicks present (Cardio), No murmurs present (Cardio), No rub (Cardio) and Peripheral pulses 2+ throughout RATE: regular rate RHYTHM: regular rhythm HEART SOUNDS: S1 normal heart sound present and S2 normal heart sound present PERIPHERAL PULSES: Peripheral pulses 2+ throughout GI: COMMON NORMALS: Normal to inspection, nondistended, normoactive bowel so unds present Neuro: COMMON NORMALS: patient oriented x3 SENSORIUM/ORIENTATION: Yes alert Psych: APPEARANCE: Yes unkempt MOOD & AFFECT: Yes depressed mood, No apathetic, No anxious, No irritable, No sad, No tearful, No fearful and No hosti le affect Face to Face: Restrn/Seclusion Events leading up to initiation: Verbalizing threat to self or others and Demonstrating self-destructive behavior (cutting, hitting gonzalez etc.) Evaluation of patient's immediate situation: Alert and oriented, No signs of physical distress and No signs of psychological distress Patient reaction since intervention applied: Continued attempts/displays harmful behavior Recent labs reviewed: Yes Review of medications: Yes Patient's current medical/behavioral condition: No new concerns since last ROS Need for restraint or seclusion is: Continued Attending notified: No Course ED course: Upper assessment patient main: And sleeping at this time no acute distress. Patient was given Geodon about 2 hours ago. Care transferred to Dr. Carranza pending disposition to psych unit. Vital Signs: Vital signs: Vital Signs Temperature 99.1 F 05/24/23 19:03 Pulse Rate 103 H 05/25/23 05:07 Respiratory Rate 18 05/25/23 11:44 Blood Pressure 152/95 05/25/23 05:07 Pulse Oximetry 99 05/25/23 11:44 Oxygen Delivery Me thod Room Air 05/25/23 11:44 MDM - Psych Medical Decision Making Patient was made comfortable emergency room had extensive work-up including CBC, CMP, EtOH, UDS, EKG. Will be admitted for inpatient care and treatment for mood disorder. Differential Diagnosis Likely acute psychosis, chronic schizophrenia, suicidal ideation, bipolar disorder, depression, drug-induced psychotic disorder and acute anxiety Lab Data 05/24/23 19:45 05/24/23 19:45 Laboratory Results WBC 9.48 10^3/uL (3.29-11.43) 05/24/23 19:45 RBC 5.40 10^6/uL (3.85-5.65) 05/24/23 19:45 Hgb 15.90 g/dL (11.27-16.99) 05/24/23 19:45 Hct 47.3 % (37-53) 05/24/23 19:45 MCV 87.6 fl (82-101) 05/24/23 19:45 MCH 29.4 pg (27-33) 05/24/23 19:45 MCHC 33.6 g/dL (30-55) 05/24/23 19:45 RDW 13.5 % (12.1-15.1) 05/24/23 19:45 Plt Count 300 10^3/cmm (157-399) 05/24/23 19:45 MPV 10.3 fL (7.4-10.4) 05/24/23 19:45 Neut % (Auto) 72.9 % 05/24/23 19:45 Lymph % (Auto) 17.8 % 05/24/23 19:45 [place] % (Auto) 6.6 % 05/24/23 19:45 Eos % (Auto) 1.7 % 05/24/23 19:45 Baso % (Auto) 0.6 % 05/24/23 19:45 Neut # (Auto) 6.90 10^3/uL (1.8-7.7) 05/24/23 19:45 Lymph # (Auto) 1.7 10^3/uL (0.8-4.8) 05/24/23 19:45 [place] # (Auto) 0.6 10^3/uL (0.2-0.9) 05/24/23 19:45 Eos # (Auto) 0.2 10^3/uL (0.0-0.8) 05/24/23 19:45 Baso # (Auto) 0.1 10^3/uL (0.0-0.1) 05/24/23 19:45 Nucleated RBC % (auto) 0 % 05/24/23 19:45 Nucleated RBCs # 0.0 /100WBC 05/24/23 19:45 Sodium 141 mmol/L (136-145) 05/24/23 19:45 Potassium 3.8 mmol/L (3.5-5.1) 05/24/23 19:45 Chloride 102 mmol/L (98-107) 05/24/23 19:45 Carbon Dioxide 26 mmol/L (22-29) 05/24/23 19:45 Anion Gap 16.8 (5-19) 05/24/23 19:45 BUN 9 mg/dL (6-20) 05/24/23 19:45 Creatinine 1.2 mg/dL (0.7-1.2) 05/24/23 19:45 GFR Calculation 71.1 mL/min (90-130) L 05/24/23 19:45 Glucose 104 mg/dL (65-115) 05/24/23 19:45 Calculated Osmolality 291 mOsm/kg (285-295) 05/24/23 19:45 Calcium 10.0 mg/dL (8.5-10.5) 05/24/23 19:45 Total Bilirubin 0.4 mg/dL (0.15-1.2) 05/24/23 19:45 AST 29 U/L (0-40) 05/24/23 19:45 ALT 53 U/L (0-41) H 05/24/23 19:45 Alkaline Phosphatase 63 U/L (40-130) 05/24/23 19:45 Total Protein 7.9 g/dL (6.6-8.7) 05/24/23 19:45 Albumin 5.0 g/dL (3.5-5.2) 05/24/23 19:45 Globulin 2.9 g/dL (1.3-4.6) 05/24/23 19:45 TSH 10.58 uIU/mL (0.27-4.20) H 05/25/23 00:00 Urine Color Yellow (Yellow) 05/25/23 00:00 Urine Appearance Clear (CLEAR) 05/25/23 00:00 Urine pH 5 (5-7) 05/25/23 00:00 Ur Specific [place] 1.020 (1.005-1.030) 05/25/23 00:00 Urine Protein 1+ (Negative) H 05/25/23 00:00 Urine Glucose (UA) Norm (Normal) 05/25/23 00:00 Urine Ketones 1+ (Negative) H 05/25/23 00:00 Urine Blood Neg (Negative) 05/25/23 00:00 Urine Nitrate Negative (Negative) 05/25/23 00:00 Urine Bilirubin 1+ (Negative) H 05/25/23 00:00 Urine Urobilinogen Neg mg/dL (Negative) 05/25/23 00:00 Ur Leukocyte Esterase Trace (Negative) H 05/25/23 00:00 Urine RBC 0-4 /hpf (0-2) H 05/25/23 00:00 Urine WBC 5-10 /hpf (0-5) H 05/25/23 00:00 Ur Squamous Epith Cells Rare /hpf (0-5) 05/25/23 00:00 Amorphous Sediment 1+ /hpf 05/25/23 00:00 Urine Bacteria None /hpf (NONE) 05/25/23 00:00 Salicylates 0.5 mg/dL (3-10) L 05/24/23 19:45 Urine Opiates Screen Negative ng/mL (Negative) 05/24/23 20:00 Acetaminophen < 5.0 ug/mL (10-30) L 05/24/23 19:45 Ur Barbiturates Screen Negative ng/mL (Negative) 05/24/23 20:00 Ur Phencyclidine Scrn Negative ng/mL (Negative) 05/24/23 20:00 Ur Amphetamines Screen Negative ng/mL (Negative) 05/24/23 20:00 U Benzodiazepines Scrn Negative ng/mL (Negative) 05/24/23 20:00 Urine Cocaine Screen Negative ng/mL (Negative) 05/24/23 20:00 U Marijuana (THC) Screen Negative ng/mL (Negative) 05/24/23 20:00 Ethyl Alcohol < 10 mg/dL (0-10) 05/24/23 19:45 Coronavirus 229E (PCR) Not detected (NOT DETECT) 05/25/23 00:00 SARS-CoV-2 (PCR) Not detected (NOT DETECT) 05/25/23 00:00 No radiology studies performed this visit EKG Data EKG 1: Interpretation: Sinus rhythm with rate of [address] changes. OK interval 168 QT 347 QRS duration 94. 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 Documented by User: Tj Rich MD 05/25/23 10:41 HPI - Psych General: Chief Complaint: Psychiatric Symptoms Stated Complaint: SI Time Seen by Provider: 05/24/23 19:20 PFSH ED PFSH: Medical History (Updated 05/24/23 @ 21:07 by Erica Abraham MD) Bipolar 2 disorder Psychiatric care Social History Smoking and tobacco/nicotine status: current every day tobacco/nicotine user Course Vital Signs: Vital signs: Vital Signs Temperature 99.1 F 05/24/23 19:03 Pulse Rate 103 H 05/25/23 05:07 Respiratory Rate 18 05/25/23 11:44 Blood Pressure 152/95 05/25/23 05:07 Pulse Oximetry 99 05/25/23 11:44 Oxygen Delivery Me thod Room Air 05/25/23 11:44 MDM - Psych Medical Decision Making Patient was made comfortable emergency room had extensive work-up including CBC, CMP, EtOH, UDS, EKG. Will be admitted for inpatient care and treatment for mood disorder. Patient presents here with suicidal ideations he has been medically cleared I did speak to [facility] in [place] will transfer there as we have no bed availability here. Medical Records I reviewed the patient's medical records. Lab Data 05/24/23 19:45 05/24/23 19:45 Laboratory Results WBC 9.48 10^3/uL (3.29-11.43) 05/24/23 19:45 RBC 5.40 10^6/uL (3.85-5.65) 05/24/23 19:45 Hgb 15.90 g/dL (11.27-16.99) 05/24/23 19:45 Hct 47.3 % (37-53) 05/24/23 19:45 MCV 87.6 fl (82-101) 05/24/23 19:45 MCH 29.4 pg (27-33) 05/24/23 19:45 MCHC 33.6 g/dL (30-55) 05/24/23 19:45 RDW 13.5 % (12.1-15.1) 05/24/23 19:45 Plt Count 300 10^3/cmm (157-399) 05/24/23 19:45 MPV 10.3 fL (7.4-10.4) 05/24/23 19:45 Neut % (Auto) 72.9 % 05/24/23 19:45 Lymph % (Auto) 17.8 % 05/24/23 19:45 [place] % (Auto) 6.6 % 05/24/23 19:45 Eos % (Auto) 1.7 % 05/24/23 19:45 Baso % (Auto) 0.6 % 05/24/23 19:45 Neut # (Auto) 6.90 10^3/uL (1.8-7.7) 05/24/23 19:45 Lymph # (Auto) 1.7 10^3/uL (0.8-4.8) 05/24/23 19:45 [place] # (Auto) 0.6 10^3/uL (0.2-0.9) 05/24/23 19:45 Eos # (Auto) 0.2 10^3/uL (0.0-0.8) 05/24/23 19:45 Baso # (Auto) 0.1 10^3/uL (0.0-0.1) 05/24/23 19:45 Nucleated RBC % (auto) 0 % 05/24/23 19:45 Nucleated RBCs # 0.0 /100WBC 05/24/23 19:45 Sodium 141 mmol/L (136-145) 05/24/23 19:45 Potassium 3.8 mmol/L (3.5-5.1) 05/24/23 19:45 Chloride 102 mmol/L (98-107) 05/24/23 19:45 Carbon Dioxide 26 mmol/L (22-29) 05/24/23 19:45 Anion Gap 16.8 (5-19) 05/24/23 19:45 BUN 9 mg/dL (6-20) 05/24/23 19:45 Creatinine 1.2 mg/dL (0.7-1.2) 05/24/23 19:45 GFR Calculation 71.1 mL/min (90-130) L 05/24/23 19:45 Glucose 104 mg/dL (65-115) 05/24/23 19:45 Calculated Osmolality 291 mOsm/kg (285-295) 05/24/23 19:45 Calcium 10.0 mg/dL (8.5-10.5) 05/24/23 19:45 Total Bilirubin 0.4 mg/dL (0.15-1.2) 05/24/23 19:45 AST 29 U/L (0-40) 05/24/23 19:45 ALT 53 U/L (0-41) H 05/24/23 19:45 Alkaline Phosphatase 63 U/L (40-130) 05/24/23 19:45 Total Protein 7.9 g/dL (6.6-8.7) 05/24/23 19:45 Albumin 5.0 g/dL (3.5-5.2) 05/24/23 19:45 Globulin 2.9 g/dL (1.3-4.6) 05/24/23 19:45 TSH 10.58 uIU/mL (0.27-4.20) H 05/25/23 00:00 Urine Color Yellow (Yellow) 05/25/23 00:00 Urine Appearance Clear (CLEAR) 05/25/23 00:00 Urine pH 5 (5-7) 05/25/23 00:00 Ur Specific [place] 1.020 (1.005-1.030) 05/25/23 00:00 Urine Protein 1+ (Negative) H 05/25/23 00:00 Urine Glucose (UA) Norm (Normal) 05/25/23 00:00 Urine Ketones 1+ (Negative) H 05/25/23 00:00 Urine Blood Neg (Negative) 05/25/23 00:00 Urine Nitrate Negative (Negative) 05/25/23 00:00 Urine Bilirubin 1+ (Negative) H 05/25/23 00:00 Urine Urobilinogen Neg mg/dL (Negative) 05/25/23 00:00 Ur Leukocyte Esterase Trace (Negative) H 05/25/23 00:00 Urine RBC 0-4 /hpf (0-2) H 05/25/23 00:00 Urine WBC 5-10 /hpf (0-5) H 05/25/23 00:00 Ur Squamous Epith Cells Rare /hpf (0-5) 05/25/23 00:00 Amorphous Sediment 1+ /hpf 05/25/23 00:00 Urine Bacteria None /hpf (NONE) 05/25/23 00:00 Salicylates 0.5 mg/dL (3-10) L 05/24/23 19:45 Urine Opiates Screen Negative ng/mL (Negative) 05/24/23 20:00 Acetaminophen < 5.0 ug/mL (10-30) L 05/24/23 19:45 Ur Barbiturates Screen Negative ng/mL (Negative) 05/24/23 20:00 Ur Phencyclidine Scrn Negative ng/mL (Negative) 05/24/23 20:00 Ur Amphetamines Screen Negative ng/mL (Negative) 05/24/23 20:00 U Benzodiazepines Scrn Negative ng/mL (Negative) 05/24/23 20:00 Urine Cocaine Screen Negative ng/mL (Negative) 05/24/23 20:00 U Marijuana (THC) Screen Negative ng/mL (Negative) 05/24/23 20:00 Ethyl Alcohol < 10 mg/dL (0-10) 05/24/23 19:45 Coronavirus 229E (PCR) Not detected (NOT DETECT) 05/25/23 00:00 SARS-CoV-2 (PCR) Not detected (NOT DETECT) 05/25/23 00:00 Discharge Plan Discharge Patient Disposition: Xfer Short-Term Hosp Clinical Impression: Depression, Suicidal ideation Condition: Stable Coding Level of Care 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
[2023-05-24 19:52] LABS: Basophils # 0.1 10^3/uL (0.0-0.1); Basophils % 0.6 %; Eosinophils # 0.2 10^3/uL (0.0-0.8); Eosinophils % 1.7 %; Hematocrit 47.3 % (37-53); Lymphocytes # 1.7 10^3/uL (0.8-4.8); Lymphocytes % 17.8 %; Mean Corpuscular HGB Conc 33.6 g/dL (30-55); Mean Corpuscular Hemoglobin 29.4 pg (27-33); Mean Corpuscular Volume 87.6 fl (82-101); Mean Platelet Volume 10.3 fL (7.4-10.4); Monocytes # 0.6 10^3/uL (0.2-0.9); Monocytes % 6.6 %; Neutrophils % 72.9 %; Nucleated Red Blood Cells % 0 %; Platelet Count 300 10^3/cmm (157-399); Red Cell Distribution Width 13.5 % (12.1-15.1); White Blood Count 9.48 10^3/uL (3.29-11.43)
[2023-05-24 20:09] LABS: Alanine Aminotransferase 53 U/L (0-41); Alkaline Phosphatase 63 U/L (40-130); Anion Gap 16.8 (5-19); Aspartate Amino Transferase 29 U/L (0-40); Blood Urea Nitrogen 9 mg/dL (6-20); Carbon Dioxide 26 mmol/L (22-29); Chloride 102 mmol/L (98-107); Globulin 2.9 g/dL (1.3-4.6); Glomerular Filtration Rate 71.1 mL/min (90-130); Glucose 104 mg/dL (65-115); Osmolality Calculated 291 mOsm/kg (285-295); Potassium 3.8 mmol/L (3.5-5.1); Salicylate 0.5 mg/dL (3-10); Sodium 141 mmol/L (136-145); Total Bilirubin 0.4 mg/dL (0.15-1.2); Total Protein 7.9 g/dL (6.6-8.7)
[2023-05-24 20:11] LABS: Acetaminophen < 5.0 ug/mL (10-30); Alcohol Level < 10 mg/dL (0-10)
[2023-05-24 20:27] LABS: Amphetamines Screen Urine Negative (Negative); Barbiturates Screen Urine Negative (Negative); Benzodiazepines Screen Urine Negative (Negative); Cocaine Screen Urine Negative (Negative); Opiate Screen Urine Negative (Negative); PCP Screen Urine Negative (Negative); THC Screen Urine Negative (Negative)
--- NOTE | 2023-05-24 20:56 | ECG_ITS ---
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 Measurements Intervals [place] Rate: 81 P: 59 WV: 168 QRS: 41 QRSD: 94 T: 51 QT: 347 QTc: 403 Interpretive Statements SINUS RHYTHM No previous ECG available for comparison Electronically Signed On 05-25-2023 8:26:41 CREATIVE WRITING TEACHER by Haley Sutton M.D. [email or web address]
[2023-05-24] MEDS: water for injection-sterile 10 ML (21:52)
[2023-05-24] MEDS: ziprasidone 20 mg/mL SDV IM (21:52)
--- NOTE | 2023-05-24 23:57 | PC.NURSE ---
96 hour Involuntary Hold Rights have been read to patient and a copy of the same has been given to him. Tuckpointer Marielena Liriano was present at bedside at the time of presentation.
[2023-05-25 00:14] LABS: Add Urine Culture? No; Add Urine Microscopic? YES; Amorphous Sediment Urine 1+ /hpf; Bilirubin Urine 1+ (Negative); Blood Urine Neg (Negative); Glucose Urine UA Norm (Normal); Ketones Urine 1+ (Negative); Leukocyte Esterase Urine Trace (Negative); Nitrate Urine Negative (Negative); Protein Urine 1+ (Negative); RBC Urine 0-4 /hpf (0-2); Squamous Epithelial Cell Urine RARE /hpf (0-5); Urine Appearance Clear (CLEAR); Urine Color Yellow (Yellow); Urobilinogen Urine Neg (Negative); pH Urine 5 (5-7)
[2023-05-25 00:38] LABS: Thyroid Stimulating Hormone 10.58 uIU/mL (0.27-4.20)
[2023-05-25 01:08] LABS: Adenovirus Not Detected (NOT DETECT); Chlamydia Pneumoniae Not Detected (NOT DETECT); Coronavirus 229E,HKU1,NL63,OC4 Not Detected (NOT DETECT); Human Metapneumovirus Not Detected (NOT DETECT); Human Rhinovirus/Enterovirus Not Detected (NOT DETECT); Influenza A Not Detected (NOT DETECT); Influenza A H1 Not Detected (NOT DETECT); Influenza A H1-2009 Not Detected (NOT DETECT); Influenza A H3 Not Detected (NOT DETECT); Influenza B Not Detected (NOT DETECT); Mycoplasma Pneumoniae Not Detected (NOT DETECT); Parainfluenza Virus Type 1 Not Detected (NOT DETECT); Parainfluenza Virus Type 2 Not Detected (NOT DETECT); Parainfluenza Virus Type 3 Not Detected (NOT DETECT); Parainfluenza Virus Type 4 Not Detected (NOT DETECT); Respiratory Syncytial Virus A Not Detected (NOT DETECT); Respiratory Syncytial Virus B Not Detected (NOT DETECT); SARS-COV-2 Not Detected (NOT DETECT)
--- NOTE | 2023-05-25 01:19 | PC.NURSE ---
Patient requesting anxiety medication. Per verbal order akin Grayson to give vistaril 50mg po.
[2023-05-25] MEDS: hyDROXYzine 25 mg Capsule 50 MG PO (01:25)
[2023-05-25 05:07] VITALS: BP 152/95; PULSE 103; RESP 16; O2SAT 98
--- NOTE | 2023-05-25 05:47 | PC.NURSE ---
Records are being faxed to Josefa [facility]ordano, Ingrid, and Ashish [facility] for possible placement for psych facility.
[2023-05-25 11:44] VITALS: RESP 18; O2SAT 99
== END 2023-05-25 14:15 | disposition short-term general hospital (02) ==
PROVIDERS: Emergency Provider Family Medicine
DX: R45.851 Suicidal ideations (principal); F32.A Depression, unspecified; Z72.0 Tobacco use; Z11.52 Encounter for screening for COVID-19
CPT/HCPCS: 36415; 80053; 80306; 80307; 81001; 84443; 85025; 87635; 93005; 96372; 99284; J3486

== ENCOUNTER 2023-07-10 18:38 | Emergency (ER) | payer MEDICAID, SELFPAY ==
[2023-07-10 18:53] VITALS: BP 150/84; PULSE 87; TEMP 36.9; O2SAT 97; BMI 29.5
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
== END 2023-07-10 21:21 | disposition home or self-care (01) ==
PROVIDERS: Emergency Provider Nurse Practitioner Family
DX: S01.511A Laceration without foreign body of lip, initial encounter (principal); W22.10XA Striking against or struck by unspecified automobile airbag, initial encounter; Z72.0 Tobacco use; V89.2XXA Person injured in unspecified motor-vehicle accident, traffic, initial encounter
CPT/HCPCS: 70450; 70486; 99284

== ENCOUNTER 2023-08-11 13:14 | Inpatient (IN) | payer MEDICAID, SELFPAY ==
[2023-08-11 13:15] VITALS: BP 151/89; PULSE 79; RESP 18; TEMP 37; O2SAT 95; BMI 29.5
--- NOTE | 2023-08-11 13:30 | W.ED.PSYCHS ---
HPI - Psych General: Chief Complaint: Psychiatric Symptoms Stated Complaint: si Time Seen by Provider: 08/11/23 13:17 Source: patient and EMS Mode of arrival: EMS Limitations: no limitations History of Present Illness: 33-year-old male with a history of bipolar along with depression and suicide attempts in the past he states that him and his fianc?e just split up today and he is having active suicidal thoughts. He states he had a plan as well and is concerned with the level of depression he has had that he would harm himself. Associated symptoms: Reports depression and suicidal ideation Review of Systems Const: Denies: fever(s), chills, body aches or change in appetite ENMT: Denies: throat pain or dental pain Card: Denies: chest pain Resp: Denies: dyspnea GI: Denies: abdominal pain, nausea, vomiting or diarrhea Musc: Denies: neck pain or back pain Skin/Breast: Denies: rash Neuro: Denies: headache(s) Psych: Reports: depression and suicidal ideation [facility] ED PFSH: Medical History Bipolar 2 disorder Psychiatric care Social History Smoking and tobacco/nicotine status: current every day tobacco/nicotine user Physical Exam Const: COMMON NORMALS: no acute distress, patient oriented x3 and healthy appearing HENMT: COMMON NORMALS: normocephalic and atraumatic HEAD & SCALP: normocephalic and atraumatic Eye: COMMON NORMALS: conjunctivae normal CONJUNCTIVA: Yes conjunctivae normal Neck/C-Spine: COMMON NORMALS: full ROM and supple Chest: COMMONS NORMALS: normal inspection of the chest Resp: COMMON NORMALS: normal respiratory effort Extremity: COMMON NORMALS: normal to inspection and full ROM Neuro: COMMON NORMALS: patient oriented x3, moves all extremities and no focal motor deficits Psych: COMMON NORMALS: mental status grossly normal, Normal thought process present and cooperative THOUGHT PROCESS: Normal thought process present THOUGHT CONTENT: Yes Suicidality present Skin: COMMON NORMALS: no rashes or lesions noted and no wounds GENERAL SKIN EXAM: no rashes or lesions noted Course Vital Signs: Vital signs: Vital Signs Temperature 98.6 F 08/11/23 13:15 Pulse Rate 79 08/11/23 13:15 Respiratory Rate 18 08/11/23 13:34 Blood Pressure 151/89 08/11/23 13:15 Pulse Oximetry 99 08/11/23 13:34 Oxygen Delivery Me thod Room Air 08/11/23 13:34 MDM - Psych Medical Decision Making Patient presents here with suicidal ideations he is medically cleared I spoke to psychiatrist will admit at this time. Medical Records I reviewed the patient's medical records. Lab Data I reviewed the patient's lab results. 08/11/23 13:39 08/11/23 13:39 No radiology studies performed this visit Discharge Plan Discharge Patient Disposition: Admitted As Inpatient Admit Provider: Eddie Liriano Clinical Impression: Suicidal ideation Condition: Stable Coding Level of Care Code ED Program Officer for [facility]
[2023-08-11 13:34] VITALS: RESP 18; O2SAT 99
[2023-08-11 13:48] LABS: Basophils # 0.1 10^3/uL (0.0-0.1); Basophils % 0.8 %; Eosinophils # 0.1 10^3/uL (0.0-0.8); Eosinophils % 0.6 %; Hematocrit 47.5 % (37-53); Lymphocytes # 1.3 10^3/uL (0.8-4.8); Mean Corpuscular HGB Conc 33.9 g/dL (30-55); Mean Corpuscular Hemoglobin 29.1 pg (27-33); Mean Corpuscular Volume 85.9 fl (82-101); Mean Platelet Volume 10.7 fL (7.4-10.4); Monocytes # 0.6 10^3/uL (0.2-0.9); Monocytes % 6.7 %; Neutrophils # 7.35 10^3/uL (1.8-7.7); Neutrophils % 77.7 %; Nucleated Red Blood Cells % 0 %; Platelet Count 267 10^3/cmm (157-399); Red Blood Count 5.53 10^6/uL (3.85-5.65); Red Cell Distribution Width 13.1 % (12.1-15.1); White Blood Count 9.47 10^3/uL (3.29-11.43)
--- NOTE | 2023-08-11 14:00 | PC.NURSE ---
96 hr rights reviewed with patient with @1330 with assistance of [facility] public records officer Agus. No verbalized questions or concerns at this time. Pt did request a drink which was provided to him by HS after rights were reviewed. Patient copy left at bedside with patient.
[2023-08-11 14:01] LABS: Alanine Aminotransferase 23 U/L (0-41); Albumin Level 4.8 g/dL (3.5-5.2); Alkaline Phosphatase 64 U/L (40-130); Aspartate Amino Transferase 16 U/L (0-40); Blood Urea Nitrogen 16 mg/dL (6-20); Calcium 9.9 mg/dL (8.5-10.5); Carbon Dioxide 23 mmol/L (22-29); Chloride 102 mmol/L (98-107); Globulin 3.1 g/dL (1.3-4.6); Glomerular Filtration Rate 70.6 mL/min (90-130); Glucose 95 mg/dL (65-115); Osmolality Calculated 285 mOsm/kg (285-295); Sodium 137 mmol/L (136-145); Total Bilirubin 0.6 mg/dL (0.15-1.2); Total Protein 7.9 g/dL (6.6-8.7)
[2023-08-11 14:03] LABS: Acetaminophen < 5.0 ug/mL (10-30); Alcohol Level < 10 mg/dL (0-10); Salicylate < 0.3 mg/dL (3-10)
[2023-08-11 14:12] LABS: Amphetamines Screen Urine Negative (Negative); Barbiturates Screen Urine Negative (Negative); Benzodiazepines Screen Urine Negative (Negative); Cocaine Screen Urine Negative (Negative); Opiate Screen Urine Negative (Negative); PCP Screen Urine Negative (Negative); THC Screen Urine Negative (Negative)
[2023-08-11 14:45] VITALS: BP 142/91; PULSE 83; RESP 20; TEMP 36.9; O2SAT 97
[2023-08-11] MEDS: hyDROXYzine 25 mg Capsule 50 MG PO (16:35)
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
[2023-08-11 19:48] VITALS: BP 144/99; PULSE 76; RESP 18; TEMP 36.7; O2SAT 98
[2023-08-11] MEDS: ARIPiprazole 10 mg Tablet 20 MG PO (20:05)
[2023-08-12 06:00] VITALS: BP 128/70; PULSE 61; RESP 16; TEMP 36.4; O2SAT 96
[2023-08-12] MEDS: hyDROXYzine 25 mg Capsule 50 MG PO ×3 (06:52→20:22)
[2023-08-12] MEDS: levothyroxine 25 mcg Tablet PO (06:52)
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
[2023-08-12] MEDS: spironolactone 25 mg Tablet PO (09:12)
[2023-08-12 14:00] VITALS: BP 124/87; PULSE 79; RESP 16; TEMP 36.8; O2SAT 98
[2023-08-12 20:16] VITALS: BP 133/88; PULSE 79; RESP 18; TEMP 36.8; O2SAT 97
[2023-08-12] MEDS: ARIPiprazole 10 mg Tablet 20 MG PO (20:22)
[2023-08-12] MEDS: ARIPiprazole 10 mg Tablet PO (20:28)
[2023-08-13 06:00] VITALS: BP 130/84; PULSE 86; RESP 16; TEMP 36.6; O2SAT 96
[2023-08-13] MEDS: levothyroxine 25 mcg Tablet PO (09:08)
[2023-08-13] MEDS: spironolactone 25 mg Tablet PO (09:08)
[2023-08-13 14:00] VITALS: BP 130/84; PULSE 77; RESP 13; TEMP 36.9; O2SAT 97
[2023-08-13] MEDS: hyDROXYzine 25 mg Capsule 50 MG PO ×2 (15:50→20:13)
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
[2023-08-13] MEDS: ARIPiprazole 30 mg Tablet PO (20:13)
[2023-08-13 20:56] VITALS: BP 128/86; PULSE 88; RESP 20; TEMP 36.9; O2SAT 96
[2023-08-14 06:00] VITALS: BP 121/75; PULSE 75; RESP 18; TEMP 36.6; O2SAT 96
[2023-08-14] MEDS: levothyroxine 25 mcg Tablet PO (08:36)
[2023-08-14] MEDS: spironolactone 25 mg Tablet PO (08:36)
[2023-08-14] MEDS: hyDROXYzine 25 mg Capsule 50 MG PO (08:44)
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
[2023-08-14 12:45] VITALS: BP 121/75; PULSE 75; RESP 18; TEMP 36.6; O2SAT 96
== END 2023-08-14 13:50 | disposition home or self-care (01) | DRG 881 ==
LOC: ER 13:33 → NP 13:38
PROVIDERS: Admitting Provider Psychiatry & Neurology Psychiatry; Emergency Provider Emergency Medicine; Visit Provider Psychiatry & Neurology Psychiatry
DX: F32.A Depression, unspecified (principal); F43.10 Post-traumatic stress disorder, unspecified; Z91.51 Personal history of suicidal behavior; F64.0 Transsexualism; Z63.0 Problems in relationship with spouse or partner; Z72.0 Tobacco use
CPT/HCPCS: 36415; 80053; 80306; 80307; 85025; 97150; 97165; 99285

== ENCOUNTER 2023-11-11 19:31 | Emergency (ER) | payer MEDICAID, SELFPAY ==
[2023-11-11 19:33] VITALS: BMI 31.0
--- NOTE | 2023-11-11 19:34 | W.ED.PSYCHS ---
HPI - Psych General: Chief Complaint: Psychiatric Symptoms Stated Complaint: SI Time Seen by Provider: 11/11/23 19:34 History of Present Illness: 33-year-old male presents to the emergency department via EMS personnel with complaints that he has been very depressed throughout the day today. He states that he broke up with his significant other today and states that he is having suicidal thoughts but states that he has no specific plan. He denies auditory or visual hallucinations. He states that he did cut his right forearm over the previous 1 week. He states that he has been admitted to the inpatient psychiatric unit approximately 3 months ago and states that he does not have any type of plan to harm himself. He states that he does not want to be admitted here to the Neuropsych Unit and only wants to go to [facility] and if he cannot go there then he would prefer to be discharged with a safety plan and he will stay with his mother melanie and he will follow-up outpatient. Associated symptoms: Reports depression and suicidal ideation; Deny auditory hallucinations, visual hallucinations or homicidal ideation Review of Systems General: Reports: 10 or more systems reviewed and unremarkable except in HPI and below Psych: Reports: depression and suicidal ideation; Denies: visual hallucinations, auditory hallucinations, tactile hallucinations or homicidal ideation [facility] ED PFSH: Medical History Bipolar 2 disorder Psychiatric care Social History Smoking and tobacco/nicotine status: current every day tobacco/nicotine user Physical Exam Narrative: EXAM NARRATIVE: General: Alert, no acute distress. Skin: Warm, dry, Intact. Head: Normocephalic, atraumatic. Neck: Supple, trachea midline. Eye: Extraocular movements are intact. PERRLA Ears, nose, mouth and throat: mucosa moist. Cardiovascular: Regular, Normal peripheral perfusion. Respiratory: Lungs are clear to auscultation, respirations are non-labored, breath sounds are equal, Symmetrical chest wall expansion. Gastrointestinal: Soft, Nontender, Non distended, Normal bowel sounds. Musculoskeletal: Normal ROM, no deformity. Neurological: Alert and oriented, No focal neurological deficit observed. Psychiatric: Cooperative, appropriate mood & affect. Depressed, suicidal ideation without plan Course Vital Signs: Vital signs: Vital Signs Pulse Rate 101 H 11/11/23 19:50 Respiratory Rate 14 11/11/23 19:50 Blood Pressure 153/86 11/11/23 19:50 Pulse Oximetry 97 11/11/23 19:50 Oxygen Delivery Me thod Room Air 11/11/23 19:50 MDM - Psych Medical Decision Making Physical exam completed and documented I did review the patient's previous medical record and at the patient's request we have contacted [facility] and they have stated that they have no beds. We did advise the patient of this information and at this time he states that he wishes to be discharged home with a safety plan stating that his mother will come get him and he will stay with his mother and he will follow-up outpatient. I did advise the patient that he may return to the emergency department at anytime for any reason and also provided him the crisis center intervention information. Medical Records I reviewed the patient's medical records. Lab Data 11/11/23 19:47 11/11/23 19:47 Laboratory Results WBC 8.61 10^3/uL (3.29-11.43) 11/11/23 19:47 RBC 5.02 10^6/uL (3.85-5.65) 11/11/23 19:47 Hgb 14.80 g/dL (11.27-16.99) 11/11/23 19:47 Hct 43.5 % (37-53) 11/11/23 19:47 MCV 86.7 fl (82-101) 11/11/23 19:47 MCH 29.5 pg (27-33) 11/11/23 19:47 MCHC 34.0 g/dL (30-55) 11/11/23 19:47 RDW 13.5 % (12.1-15.1) 11/11/23 19:47 Plt Count 273 10^3/cmm (157-399) 11/11/23 19:47 MPV 10.4 fL (7.4-10.4) 11/11/23 19:47 Neut % (Auto) 62.4 % 11/11/23 19:47 Lymph % (Auto) 22.6 % 11/11/23 19:47 M[place] % (Auto) 10.3 % 11/11/23 19:47 Eos % (Auto) 3.7 % 11/11/23 19:47 Baso % (Auto) 0.7 % 11/11/23 19:47 Neut # (Auto) 5.36 10^3/uL (1.8-7.7) 11/11/23 19:47 Lymph # (Auto) 2.0 10^3/uL (0.8-4.8) 11/11/23 19:47 [place] # (Auto) 0.9 10^3/uL (0.2-0.9) 11/11/23 19:47 Eos # (Auto) 0.3 10^3/uL (0.0-0.8) 11/11/23 19:47 Baso # (Auto) 0.1 10^3/uL (0.0-0.1) 11/11/23 19:47 Nucleated RBC % (auto) 0 % 11/11/23 19:47 Nucleated RBCs # 0.0 /100WBC 11/11/23 19:47 Sodium 140 mmol/L (136-145) 11/11/23 19:47 Potassium 3.6 mmol/L (3.5-5.1) 11/11/23 19:47 Chloride 102 mmol/L (98-107) 11/11/23 19:47 Carbon Dioxide 24 mmol/L (22-29) 11/11/23 19:47 Anion Gap 17.6 (5-19) 11/11/23 19:47 BUN 16 mg/dL (6-20) 11/11/23 19:47 Creatinine 1.3 mg/dL (0.7-1.2) H 11/11/23 19:47 GFR Calculation 64.4 mL/min (90-130) L 11/11/23 19:47 Glucose 105 mg/dL (65-115) 11/11/23 19:47 Calculated Osmolality 292 mOsm/kg (285-295) 11/11/23 19:47 Calcium 8.8 mg/dL (8.5-10.5) 11/11/23 19:47 Total Bilirubin 0.5 mg/dL (0.15-1.2) 11/11/23 19:47 AST 63 U/L (0-40) H 11/11/23 19:47 ALT 53 U/L (0-41) H 11/11/23 19:47 Alkaline Phosphatase 60 U/L (40-130) 11/11/23 19:47 Total Protein 7.1 g/dL (6.6-8.7) 11/11/23 19:47 Albumin 4.5 g/dL (3.5-5.2) 11/11/23 19:47 Globulin 2.6 g/dL (1.3-4.6) 11/11/23 19:47 Salicylates 1.3 mg/dL (3-10) L 11/11/23 19:47 Acetaminophen < 5.0 ug/mL (10-30) L 11/11/23 19:47 Ethyl Alcohol 12 mg/dL (0-10) H 11/11/23 19:47 No radiology studies performed this visit EKG Data EKG 1: Interpretation: Twelve-lead EKG obtained at 1936 reviewed at 193 demonstrates sinus rhythm, ventricular rate 89, VT interval 173, QRS duration 98, QT 372, QTc [address] elevation or depression to demonstrate acute ischemia or infarction at present. Discharge Plan Discharge Patient Disposition: Home Clinical Impression: Suicidal ideation Depression Qualifiers: Depression Type: unspecified Qualified Code(s): F32.A - Depression, unspecified Condition: Stable Prescriptions: No Action aripiprazole 30 mg tablet 30 mg PO BEDTIME 30 Days Qty: 30 1RF hydroxyzine pamoate 25 mg capsule 25 - 50 mg PO Q6H PRN (Reason: Anxiety) 30 Days Qty: 120 1RF levothyroxine 25 mcg tablet 25 mcg PO DAILY 30 Days Qty: 30 1RF Discharge Orders: Discharge ED (Routine); Ordered 11/11/23 Ordered By: Nikolas Mazariegos Discharge Diet: Usual diet Discharge Activity: Resume usual activity Patient Instructions: Opioid Safety, Pain Management Activity Restrictions/Additional Instructions: Activity Restrictions/Additional Instructions: Thank you for choosing [facility] for your healthcare needs today. Please realize that you were seen in the Emergency Department and that we are providing you with an emergency medical screening exam and this may not be a complete and all inclusive of all the testing and or medical work-up that you may need to determine your ailment or severity of your illness. It is very important that you follow-up as instructed with your Primary care provider or Specialist for additional evaluation and to discuss your medical treatment plan. You may return to the Emergency Department should you have concerns or if your condition changes or worsens in any way. Coding Level of Care Code ED Sales And Catering Coordinator for [facility]
--- NOTE | 2023-11-11 19:35 | ECG_ITS ---
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 Measurements Intervals [place] Rate: 89 P: 60 [place]: 173 QRS: 58 QRSD: 98 T: 55 QT: 372 QTc: 453 Interpretive Statements SINUS RHYTHM Compared to ECG 05/24/2023 20:56:15 No significant changes Electronically Signed On 11-12-2023 16:59:49 CDT by Ronald Mckeon M.D. [id number]
[2023-11-11 19:50] VITALS: BP 153/86; PULSE 101; RESP 14; O2SAT 97
[2023-11-11 19:59] LABS: Basophils # 0.1 10^3/uL (0.0-0.1); Basophils % 0.7 %; Eosinophils # 0.3 10^3/uL (0.0-0.8); Eosinophils % 3.7 %; Hematocrit 43.5 % (37-53); Lymphocytes % 22.6 %; Mean Corpuscular Hemoglobin 29.5 pg (27-33); Mean Corpuscular Volume 86.7 fl (82-101); Mean Platelet Volume 10.4 fL (7.4-10.4); Monocytes # 0.9 10^3/uL (0.2-0.9); Monocytes % 10.3 %; Neutrophils # 5.36 10^3/uL (1.8-7.7); Neutrophils % 62.4 %; Nucleated Red Blood Cells % 0 %; Platelet Count 273 10^3/cmm (157-399); Red Blood Count 5.02 10^6/uL (3.85-5.65); Red Cell Distribution Width 13.5 % (12.1-15.1); White Blood Count 8.61 10^3/uL (3.29-11.43)
[2023-11-11 20:16] LABS: Alanine Aminotransferase 53 U/L (0-41); Albumin Level 4.5 g/dL (3.5-5.2); Alcohol Level 12 mg/dL (0-10); Alkaline Phosphatase 60 U/L (40-130); Anion Gap 17.6 (5-19); Aspartate Amino Transferase 63 U/L (0-40); Blood Urea Nitrogen 16 mg/dL (6-20); Calcium 8.8 mg/dL (8.5-10.5); Carbon Dioxide 24 mmol/L (22-29); Chloride 102 mmol/L (98-107); Creatinine Clr Calc Pharmacy 93.7698; Globulin 2.6 g/dL (1.3-4.6); Glomerular Filtration Rate 64.4 mL/min (90-130); Glucose 105 mg/dL (65-115); Osmolality Calculated 292 mOsm/kg (285-295); Potassium 3.6 mmol/L (3.5-5.1); Salicylate 1.3 mg/dL (3-10); Sodium 140 mmol/L (136-145); Total Bilirubin 0.5 mg/dL (0.15-1.2); Total Protein 7.1 g/dL (6.6-8.7)
[2023-11-11 20:25] LABS: Acetaminophen < 5.0 ug/mL (10-30)
== END 2023-11-11 20:04 | disposition home or self-care (01) ==
PROVIDERS: Emergency Provider Internal Medicine
DX: R45.851 Suicidal ideations (principal); F32.A Depression, unspecified; Z72.0 Tobacco use
CPT/HCPCS: 36415; 80053; 80307; 85025; 93005; 99284

== ENCOUNTER 2023-11-13 15:01 | Inpatient (IN) | payer MEDICAID, SELFPAY ==
[2023-11-13 15:03] VITALS: BP 146/88; PULSE 84; TEMP 36.9; O2SAT 98; BMI 29.5
[2023-11-13 16:06] LABS: Basophils # 0.1 10^3/uL (0.0-0.1); Basophils % 0.7 %; Eosinophils # 0.3 10^3/uL (0.0-0.8); Eosinophils % 3.7 %; Hematocrit 45.3 % (37-53); Lymphocytes # 1.6 10^3/uL (0.8-4.8); Lymphocytes % 17.2 %; Mean Corpuscular HGB Conc 33.6 g/dL (30-55); Mean Corpuscular Hemoglobin 29.1 pg (27-33); Mean Corpuscular Volume 86.8 fl (82-101); Mean Platelet Volume 10.7 fL (7.4-10.4); Monocytes # 0.7 10^3/uL (0.2-0.9); Monocytes % 7.9 %; Neutrophils # 6.48 10^3/uL (1.8-7.7); Neutrophils % 70.3 %; Nucleated Red Blood Cells % 0 %; Platelet Count 301 10^3/cmm (157-399); Red Blood Count 5.22 10^6/uL (3.85-5.65); Red Cell Distribution Width 13.4 % (12.1-15.1); White Blood Count 9.22 10^3/uL (3.29-11.43)
--- NOTE | 2023-11-13 16:24 | W.ED.PSYCHS ---
HPI - Psych General: Chief Complaint: Psychiatric Symptoms Stated Complaint: SI Time Seen by Provider: 11/13/23 15:06 Source: patient Mode of arrival: ambulatory Limitations: no limitations History of Present Illness: 33-year-old male with a history of bipolar along with depression states has been having increasing suicidal thoughts. He states has been severely depressed and does not feel like living anymore and wants to kill himself. Denies any worse improved factors Associated symptoms: Reports depression and suicidal ideation Review of Systems Const: Denies: fever(s), chills, body aches or change in appetite Eyes: Denies: blurry vision or eye discomfort ENMT: Denies: throat pain or dental pain Card: Denies: chest pain Resp: Denies: dyspnea GI: Denies: abdominal pain, nausea, vomiting or diarrhea Musc: Denies: neck pain or back pain Skin/Breast: Denies: rash Neuro: Denies: headache(s) Psych: Reports: depression and suicidal ideation [facility] ED PFSH: Medical History Bipolar 2 disorder Psychiatric care Social History Smoking and tobacco/nicotine status: current every day tobacco/nicotine user Physical Exam Const: COMMON NORMALS: no acute distress, patient oriented x3 and healthy appearing HENMT: COMMON NORMALS: normocephalic and atraumatic HEAD & SCALP: normocephalic and atraumatic Neck/C-Spine: COMMON NORMALS: full ROM and supple Chest: COMMONS NORMALS: normal inspection of the chest Resp: COMMON NORMALS: normal respiratory effort Cardio: COMMON NORMALS: regular rate, regular rhythm and No murmurs present (Cardio) RATE: regular rate RHYTHM: regular rhythm Extremity: COMMON NORMALS: normal to inspection and full ROM Neuro: COMMON NORMALS: patient oriented x3, moves all extremities and no focal motor deficits Psych: COMMON NORMALS: mental status grossly normal, Normal thought process present and cooperative THOUGHT PROCESS: Normal thought process present THOUGHT CONTENT: Yes Suicidality present Skin: COMMON NORMALS: no rashes or lesions noted and no wounds GENERAL SKIN EXAM: no rashes or lesions noted Course Vital Signs: Vital signs: Vital Signs Temperature 98.4 F 11/13/23 15:03 Pulse Rate 84 11/13/23 15:03 Blood Pressure 146/88 11/13/23 15:03 Pulse Oximetry 98 11/13/23 15:03 Oxygen Delivery Me thod Room Air 11/13/23 15:03 MDM - Psych Medical Decision Making Patient presents for suicidal ideation he was placed on a 6-hour hold medically cleared I spoke to Dr. Liriano and will admit Medical Records I reviewed the patient's medical records. Lab Data I reviewed the patient's lab results. 11/13/23 15:35 11/13/23 15:35 Laboratory Results WBC 9.22 10^3/uL (3.29-11.43) 11/13/23 15:35 RBC 5.22 10^6/uL (3.85-5.65) 11/13/23 15:35 Hgb 15.20 g/dL (11.27-16.99) 11/13/23 15:35 Hct 45.3 % (37-53) 11/13/23 15:35 MCV 86.8 fl (82-101) 11/13/23 15:35 MCH 29.1 pg (27-33) 11/13/23 15:35 MCHC 33.6 g/dL (30-55) 11/13/23 15:35 RDW 13.4 % (12.1-15.1) 11/13/23 15:35 Plt Count 301 10^3/cmm (157-399) 11/13/23 15:35 MPV 10.7 fL (7.4-10.4) H 11/13/23 15:35 Neut % (Auto) 70.3 % 11/13/23 15:35 Lymph % (Auto) 17.2 % 11/13/23 15:35 Menard % (Auto) 7.9 % 11/13/23 15:35 Eos % (Auto) 3.7 % 11/13/23 15:35 Baso % (Auto) 0.7 % 11/13/23 15:35 Neut # (Auto) 6.48 10^3/uL (1.8-7.7) 11/13/23 15:35 Lymph # (Auto) 1.6 10^3/uL (0.8-4.8) 11/13/23 15:35 Menard # (Auto) 0.7 10^3/uL (0.2-0.9) 11/13/23 15:35 Eos # (Auto) 0.3 10^3/uL (0.0-0.8) 11/13/23 15:35 Baso # (Auto) 0.1 10^3/uL (0.0-0.1) 11/13/23 15:35 Nucleated RBC % (auto) 0 % 11/13/23 15:35 Nucleated RBCs # 0.0 /100WBC 11/13/23 15:35 Sodium 138 mmol/L (136-145) 11/13/23 15:35 Potassium 4.0 mmol/L (3.5-5.1) 11/13/23 15:35 Chloride 104 mmol/L (98-107) 11/13/23 15:35 Carbon Dioxide 22 mmol/L (22-29) 11/13/23 15:35 Anion Gap 16.0 (5-19) 11/13/23 15:35 BUN 8 mg/dL (6-20) 11/13/23 15:35 Creatinine 1.2 mg/dL (0.7-1.2) 11/13/23 15:35 GFR Calculation 70.6 mL/min (90-130) L 11/13/23 15:35 Glucose 103 mg/dL (65-115) 11/13/23 15:35 Calculated Osmolality 285 mOsm/kg (285-295) 11/13/23 15:35 Calcium 9.2 mg/dL (8.5-10.5) 11/13/23 15:35 Total Bilirubin 0.4 mg/dL (0.15-1.2) 11/13/23 15:35 AST 29 U/L (0-40) 11/13/23 15:35 ALT 44 U/L (0-41) H 11/13/23 15:35 Alkaline Phosphatase 60 U/L (40-130) 11/13/23 15:35 Total Protein 7.5 g/dL (6.6-8.7) 11/13/23 15:35 Albumin 4.5 g/dL (3.5-5.2) 11/13/23 15:35 Globulin 3.0 g/dL (1.3-4.6) 11/13/23 15:35 Salicylates < 0.3 mg/dL (3-10) L 11/13/23 15:35 Acetaminophen < 5.0 ug/mL (10-30) L 11/13/23 15:35 Ethyl Alcohol < 10 mg/dL (0-10) 11/13/23 15:35 No radiology studies performed this visit Discharge Plan Discharge Patient Disposition: Admitted As Inpatient Admit Provider: Eddie Liriano Clinical Impression: Suicidal ideation Condition: Stable Coding Level of Care Code ED Chief Design Drafter for [facility] Del[facility]
[2023-11-13 16:28] LABS: Alanine Aminotransferase 44 U/L (0-41); Albumin Level 4.5 g/dL (3.5-5.2); Alkaline Phosphatase 60 U/L (40-130); Aspartate Amino Transferase 29 U/L (0-40); Blood Urea Nitrogen 8 mg/dL (6-20); Calcium 9.2 mg/dL (8.5-10.5); Carbon Dioxide 22 mmol/L (22-29); Chloride 104 mmol/L (98-107); Glomerular Filtration Rate 70.6 mL/min (90-130); Glucose 103 mg/dL (65-115); Osmolality Calculated 285 mOsm/kg (285-295); Sodium 138 mmol/L (136-145); Total Bilirubin 0.4 mg/dL (0.15-1.2); Total Protein 7.5 g/dL (6.6-8.7)
[2023-11-13 16:35] LABS: Acetaminophen < 5.0 ug/mL (10-30); Alcohol Level < 10 mg/dL (0-10); Salicylate < 0.3 mg/dL (3-10)
[2023-11-13 17:30] VITALS: BP 148/96; PULSE 74; RESP 16; TEMP 36.7; O2SAT 97
--- NOTE | 2023-11-13 17:30 | PC.NURSE ---
96 hr rights reviewed with patient @[phone] with assistance of [facility] senior escrow officer Mikel. Add education reviewed. No verbalized concerns or questions at this time. Patient copy left with patient.
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
[2023-11-13 19:38] LABS: Amphetamines Screen Urine Negative (Negative); Barbiturates Screen Urine Negative (Negative); Benzodiazepines Screen Urine Negative (Negative); Cocaine Screen Urine Negative (Negative); Opiate Screen Urine Negative (Negative); PCP Screen Urine Negative (Negative); THC Screen Urine Negative (Negative)
[2023-11-13] MEDS: hyDROXYzine 25 mg Capsule 50 MG PO (20:07)
[2023-11-13] MEDS: ARIPiprazole 30 mg Tablet 15 MG PO (20:07)
[2023-11-13] MEDS: levothyroxine 50 mcg Tablet PO (20:07)
[2023-11-13 21:01] VITALS: BP 127/85; PULSE 81; RESP 17; TEMP 36.3; O2SAT 95
[2023-11-14 06:00] VITALS: BP 128/77; PULSE 64; RESP 16; TEMP 36.5; O2SAT 97
[2023-11-14 14:00] VITALS: BP 127/86; PULSE 97; RESP 16; TEMP 36.6; O2SAT 96
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
[2023-11-14] MEDS: hyDROXYzine 25 mg Capsule 50 MG PO (17:41)
[2023-11-14] MEDS: levothyroxine 50 mcg Tablet PO (19:52)
[2023-11-14] MEDS: ARIPiprazole 30 mg Tablet 15 MG PO (19:53)
[2023-11-14 20:08] VITALS: BP 135/88; PULSE 79; RESP 18; TEMP 36.6; O2SAT 98
[2023-11-15 06:00] VITALS: BP 134/80; PULSE 57; RESP 16; TEMP 36.5; O2SAT 97
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
--- NOTE | 2023-11-15 09:45 | PC.NURSE ---
IN BED RESTING AROUSES TO VOICE. DENIES PAIN. DENIES SI/HI AND AVH AT THIS TIME. RATES ANXIETY /10 AND DEPRESSION /. PT AFFECT IS FLAT AND MOOD DEPRESSED. GUARDED WITH STAFF. PT IS OBSERVED WITHDRAWN TO ROOM. ALL QUESTIONS ANSWERED AND SUPPORT VOICED.
[2023-11-15] MEDS: hyDROXYzine 25 mg Capsule 50 MG PO ×2 (11:08→20:47)
[2023-11-15 13:46] VITALS: BP 115/72; PULSE 94; RESP 16; TEMP 36.8; O2SAT 95
[2023-11-15 20:10] VITALS: BP 140/88; PULSE 100; RESP 18; TEMP 36.6; O2SAT 95
[2023-11-15] MEDS: levothyroxine 50 mcg Tablet PO (20:47)
[2023-11-15] MEDS: ARIPiprazole 30 mg Tablet 15 MG PO (20:47)
[2023-11-16 06:00] VITALS: BP 125/78; PULSE 66; RESP 16; O2SAT 96
[2023-11-16] MEDS: ARIPiprazole Maintena 400 MG IM (10:42)
--- NOTE | 2023-11-16 10:43 | PC.NURSE ---
Abilify injection given in left deltoid. Patient tolerated well.
--- NOTE | 2023-11-16 12:21 | PC.NURSE ---
Nurses preformed room checks at lunchtime, no contraband was found.
[2023-11-16 14:00] VITALS: BP 138/89; PULSE 102; RESP 16; TEMP 36.7; O2SAT 97
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
[2023-11-16 20:56] VITALS: BP 143/91; PULSE 95; RESP 18; TEMP 36.9; O2SAT 97
[2023-11-16] MEDS: quetiapine 100 mg Tablet PO (21:22)
[2023-11-16] MEDS: ARIPiprazole 10 mg Tablet 20 MG PO (21:22)
[2023-11-16] MEDS: hyDROXYzine 25 mg Capsule 50 MG PO (21:22)
[2023-11-17 06:00] VITALS: BP 131/75; PULSE 74; RESP 17; O2SAT 98
--- NOTE | 2023-11-17 08:33 | PC.NURSE ---
RESTING IN BED AROUSES TO VOICE. DENIES PAIN. DENIES SI/HI AND AVH AT THIS TIME. RATES ANXIETY 1/10 AND DEPRESSION 0/10. AFFECT IS FLAT AND DEPRESSED MOOD NOTED. PT STATES SHE SLEPT GOOD. PT STATES SHE THINKS SHE WILL BE DISCHARGING TODAY. INFORMED PT AFTER MEETING RN WOULD UPDATE ON DISCHARGE STATUS. PT STATED GOAL FOR THE DAY IS TO GO HOME ALL QUESTIONS WERE ANSWERED AND SUPPORT WAS VOICED.
[2023-11-17] MEDS: levothyroxine 50 mcg Tablet PO (08:38)
[2023-11-17] MEDS: ondansetron 4 MG Tablet PO (11:16)
[2023-11-17 14:00] VITALS: BP 124/89; PULSE 100; RESP 16; TEMP 36.8; O2SAT 98
[2023-11-17] MEDS: acetaminophen 325 mg Tablet 650 MG PO ×2 (15:23→21:10)
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
[2023-11-17 20:09] VITALS: BP 143/83; PULSE 91; RESP 18; TEMP 36.9; O2SAT 95
[2023-11-17] MEDS: quetiapine XR (24HR) 50 mg Tablet 150 MG PO (21:10)
[2023-11-17] MEDS: ARIPiprazole 10 mg Tablet 15 MG PO (21:10)
[2023-11-18] MEDS: levothyroxine 50 mcg Tablet PO (05:13)
[2023-11-18 06:00] VITALS: BP 134/69; PULSE 72; RESP 17; O2SAT 96
[2023-11-18 11:18] VITALS: BP 134/69; PULSE 72; RESP 17; O2SAT 96
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
== END 2023-11-18 12:03 | disposition home or self-care (01) | DRG 885 ==
LOC: ER 16:26 → NP 16:51
PROVIDERS: Admitting Provider Psychiatry & Neurology Psychiatry; Emergency Provider Emergency Medicine; PCP Family Medicine; Visit Provider Psychiatry & Neurology Psychiatry
DX: F31.81 Bipolar II disorder (principal); R45.851 Suicidal ideations; F43.10 Post-traumatic stress disorder, unspecified; F60.3 Borderline personality disorder; F64.0 Transsexualism
CPT/HCPCS: 36415; 80053; 80306; 80307; 85025; 96372; 97150; 97165; 99285; Q0162

== ENCOUNTER → 2024-03-10 10:00 | Outpatient (BNVA) | payer MEDICAID, SELFPAY | PROVIDERS: PCP Family Medicine; Visit Provider Nurse Practitioner | DX: J06.9 Acute upper respiratory infection, unspecified (principal) | CPT/HCPCS: 87426 ==

== ENCOUNTER → 2024-04-26 09:21 | Outpatient (BNVA) | payer OTHER, SELFPAY | PROVIDERS: PCP Family Medicine; Visit Provider Nurse Practitioner | DX: Z79.899 Other long term (current) drug therapy (principal) | CPT/HCPCS: 80061; 83036 ==

== ENCOUNTER → 2024-07-11 12:02 | Outpatient (BNVA) | payer MEDICAID, SELFPAY | PROVIDERS: PCP Family Medicine; Visit Provider Emergency Medicine | DX: R11.0 Nausea (principal) | CPT/HCPCS: 87400 ==

== ENCOUNTER 2024-07-25 08:21 | Emergency (ER) | payer MEDICAID, SELFPAY ==
[2024-07-25 08:28] VITALS: BP 141/92; PULSE 75; RESP 16; TEMP 36.5; O2SAT 98; BMI 31.0
--- NOTE | 2024-07-25 09:45 | W.ED.ABDPA2 ---
HPI - Abdominal Pain General: Chief Complaint: Abdominal Pain Stated Complaint: lower abd pain Time Seen by Provider: 07/25/24 08:42 History of Present Illness: 34-year-old male reports that he has had some pain in his right lower abdomen sort of near his umbilicus for the last 3 days. It only hurts when he tries to sit up or uses his abdominal wall muscles. Otherwise he is completely asymptomatic. No fever, chills, loss of appetite, pain with balancing, diarrhea, hematuria, dysuria, testicular pain, flank pain or any other symptoms. Denies history of any abdominal surgeries. Denies any trauma. He cannot recall doing any recent excessive physical exertion. Associated Symptoms: Denies chills, diarrhea, dysuria, fever(s), nausea, syncope and vomiting Related Data Home Medications Medication Instructions Recorded Confirmed rizatriptan 10 mg tablet See Rx Instructions .Route .COMPLEX 11/13/23 07/19/24 levothyroxine 50 mcg tablet 75 mcg PO DAILY 02/02/24 07/19/24 conjugated estrogens 25 mg mg IM 03/10/24 07/19/24 solution for injection Previous Rx's Medication Instructions Recorded cetirizine 10 mg tablet 10 mg PO DAILY #30 tabs 03/10/24 hydroxyzine pamoate 25 mg capsule 50 mg (2 x 25 mg) PO BEDTIME #30 04/26/24 caps diphenoxylate-atropine 2.5 10 ml PO QID PRN diarrhea #60 mL 07/11/24 mg-0.025 mg/5 mL oral liquid ondansetron 8 mg disintegrating 8 mg PO Q8H PRN nausea and 07/11/24 tablet vomiting 5 days #15 tabs aripiprazole 15 mg tablet (Abilify) 15 mg PO DAILY #30 tabs 07/19/24 quetiapine 50 mg tablet,extended 50 mg PO QPM #60 tabs 07/19/24 release 24 hr (Seroquel XR) Allergies Allergy/AdvReac Type Severity Reaction Status Date / Time lamotrigine [From Lamictal] Allergy Severe ALGY-Anaphy Verified 07/25/24 08:34 laxis PAPER TAPE Allergy Rash Uncoded 07/25/24 08:34 Review of Systems General: Reports: 10 or more systems reviewed and unremarkable except in HPI and below Const: Denies: fever(s), chills or body aches Eyes: Denies: change in vision ENMT: Denies: throat pain Card: Denies: chest pain, edema or syncope Resp: Denies: dyspnea or productive cough GI: Denies: nausea, vomiting or diarrhea : Denies: flank pain, dysuria or urinary frequency Musc: Denies: neck pain, back pain, extremity pain or extremity swelling Skin/Breast: Denies: rash or erythema Neuro: Denies: headache(s), numbness in extremities, weakness in extremities, lack of coordination or difficulty walking PFSH ED PFSH: Medical History On combination antipsychotic drug therapy Bipolar 2 disorder Psychiatric care Social History Smoking and tobacco/nicotine status: never used tobacco/nicotine Physical Exam Narrative: EXAM NARRATIVE: I cannot actually elicit any abdominal tenderness. The only time he notices pain is when he does a sit up . No appendiceal signs. Heelstrike negative. Abdominal wall palpated during a sit up motion. No palpable masses or hernias. No umbilical hernia appreciated. No inguinal hernia appreciated. Const: COMMON NORMALS: no limitations, alert and well nourished EXAM LIMITATIONS: no altered mental status HENMT: COMMON NORMALS: normocephalic, atraumatic and external ears normal HEAD & SCALP: normocephalic and atraumatic EXTERNAL EAR: Yes external ears normal MOUTH: no muffled voice Eye: COMMON NORMALS: EOMs intact bilaterally, conjunctivae normal and no scleral icterus CONJUNCTIVA: Yes conjunctivae normal Neck/C-Spine: COMMON NORMALS: no JVD GENERAL: Yes normal visual inspection and Yes trachea midline Resp: COMMON NORMALS: normal respiratory effort, No use of accessory muscles and clear to auscultation bilaterally AUSCULTATION: clear to auscultation bilaterally Cardio: COMMON NORMALS: no JVD, regular rate and regular rhythm RATE: regular rate RHYTHM: regular rhythm GI: COMMON NORMALS: Soft to palpation and non-tender PALPATION: Yes Soft to palpation and No Guarding due to palpation present (GI) Extremity: COMMON NORMALS: normal to inspection Neuro: COMMON NORMALS: moves all extremities, no focal motor deficits and no sensory deficits noted SENSORIUM/ORIENTATION: Yes alert SPEECH: speech normal Psych: COMMON NORMALS: mental status grossly normal, Normal thought process present, cooperative, normal affect and speech normal SPEECH: Yes normal speech THOUGHT PROCESS: Normal thought process present Skin: COMMON NORMALS: no rashes or lesions noted, turgor normal and no jaundice GENERAL SKIN EXAM: no rashes or lesions noted and turgor normal Course Vital Signs: Vital signs: Vital Signs Temperature 97.7 F 07/25/24 08:28 Pulse Rate 75 07/25/24 08:28 Respiratory Rate 16 07/25/24 08:28 Blood Pressure 141/92 07/25/24 08:28 Pulse Oximetry 98 07/25/24 08:28 Oxygen Delivery Me thod Room Air 07/25/24 08:28 MDM - Abdominal Pain Medical Decision Making This is a well-appearing nontoxic 34-year-old male with abdominal wall pain in the right lower abdomen somewhat near the umbilicus that hurts only with using the abdominal wall muscles. I cannot elicit any appendiceal signs. He has no other subjective symptoms. I cannot see any rashes and I cannot feel any masses or hernias. We discussed risk benefits and alternatives of doing further testing. At this time, the pretest probability for surgical emergency such as incarcerated hernia, appendicitis, perforation, etc. is low. I do not feel that the benefits of doing CT imaging outweigh the risk. Similarly, the patient has no other subjective symptoms, urinary symptoms, stool changes or any other red flags to suggest he needs any further workup at this time. Our plan is to discharge and have him monitor his symptoms closely. I have given him specific return precautions and the patient has agreed to abide by them. No radiology studies performed this visit Discharge Plan Discharge Patient Disposition: Home Clinical Impression: Abdominal wall pain in right lower quadrant Condition: Stable Prescriptions: No Action hydroxyzine pamoate 25 mg capsule 50 mg PO BEDTIME Qty: 30 2RF conjugated estrogens 25 mg recon soln IM cetirizine 10 mg tablet 10 mg PO DAILY Qty: 30 0RF diphenoxylate-atropine 2.5-0.025 mg/5 mL liquid 10 ml PO QID PRN (Reason: diarrhea) Qty: 60 0RF ondansetron 8 mg tablet,disintegrating 8 mg PO Q8H PRN (Reason: nausea and vomiting) 5 Days Qty: 15 0RF aripiprazole [Abilify] 15 mg tablet 15 mg PO DAILY Qty: 30 1RF quetiapine [Seroquel XR] 50 mg tablet extended release 24 hr 50 mg PO QPM Qty: 60 0RF Rx Instructions: Take 2 tablets at 8PM rizatriptan 10 mg tablet See Rx Instructions .ROUTE .COMPLEX Rx Instructions: 10 mg as directed levothyroxine 50 mcg tablet 75 mcg PO DAILY Discharge Orders: Discharge ED (Routine); Ordered 07/25/24 Ordered By: Mikel Fu Referrals: Matthew Schultz MD [Primary Care Provider] - Discharge Diet: Usual diet Discharge Activity: Resume usual activity Patient Instructions: Abdominal Pain (ED) Activity Restrictions/Additional Instructions: As we have discussed, I suspect that you have abdominal wall pain rather than an intra-abdominal cause for your discomfort. Please pay close attention to your symptoms. Return to the emergency department if you have fever, chills, abnormal stools (such as bloody stools, diarrhea, mucus in the stools), bloody urine, painful urination, loss of appetite, increasing pain, new flank pain, or other urgent symptoms. Coding Level of Care Code ED Joint Finisher for [facility]
== END 2024-07-25 10:11 | disposition home or self-care (01) ==
PROVIDERS: Emergency Provider Emergency Medicine; PCP Family Medicine
DX: R10.31 Right lower quadrant pain (principal)
CPT/HCPCS: 99281

== ENCOUNTER 2024-12-12 10:44 | Emergency (ER) | payer MEDICAID, SELFPAY ==
[2024-09-24 10:11] VITALS: BP 122/83; BMI 31.5
[2024-12-12 10:46] VITALS: BP 127/88; PULSE 76; RESP 14; TEMP 36.7; O2SAT 97; BMI 31.0
--- NOTE | 2024-12-12 10:49 | W.ED.PSYCHS ---
HPI - Psych General: Chief Complaint: Psychiatric Symptoms Stated Complaint: mhe Time Seen by Provider: 12/12/24 10:48 History of Present Illness: 34-year-old male presents emergency room complaining of suicidal ideation. Patient has a history of bipolar disorder personality disorder. He has previously had suicide attempts has not been taking his medications last few days because of or logistical issues so he has missed several doses he has suicidal ideation with plan of walking into traffic. Related Data Home Medications ?Medication ?Instructions ?Recorded ?Confirmed levothyroxine 50 mcg tablet 75 mcg PO DAILY 02/02/24 12/12/24 estradiol valerate 10 mg/mL 2.5 mg IM .q 7 days 10/12/24 12/12/24 intramuscular oil Previous Rx's ?Medication ?Instructions ?Recorded cetirizine 10 mg tablet 10 mg PO DAILY #30 tabs 03/10/24 aripiprazole 15 mg tablet (Abilify) 15 mg PO DAILY #30 tabs 11/11/24 hydroxyzine pamoate 25 mg capsule 50 mg (2 x 25 mg) PO BEDTIME #30 11/11/24 caps quetiapine 50 mg tablet,extended 50 mg PO QPM #60 tabs 11/11/24 release 24 hr (Seroquel XR) Allergies Allergy/AdvReac Type Severity Reaction Status Date / Time lamotrigine (From Lamictal) Allergy Severe ALGY-Anaphy Verified 12/12/24 10:53 laxis PAPER TAPE Allergy Rash Uncoded 12/12/24 10:53 Review of Systems Const: Denies: fever(s) or chills Card: Denies: chest pain Resp: Denies: dyspnea GI: Denies: abdominal pain : Denies: dysuria, urinary frequency or urinary urgency Musc: Denies: neck pain or back pain Skin/Breast: Denies: rash PFSH ED PFSH: Medical History Allergic reaction Atopic dermatitis Cellulitis On combination antipsychotic drug therapy Bipolar 2 disorder Psychiatric care Social History Smoking and tobacco/nicotine status: never used tobacco/nicotine Alcohol intake: current Alcohol intake frequency: holidays/special occasions only Substance/Drug Use: current Adopted: No Caregiver/support person: No Lives independently: No Household members: other Details: friend and his mother Housing: Manufactured/Mobile home Marital status: Single Number of children: 0 Number of grandchildren: 0 Highest education level completed: Some College, No Degree service: No Current occupational status: employed Current occupation: [employer] Current occupational exposures/hazards: No Pets and animals: Yes Pets & animals: snake(s) Leisure activites: art, games, reading and other Leisure activities details: watch anime and video games Sexually active: No Do you think of yourself as: Bisexual Current gender identity: Trans [id number] Dulce/Quaker: [place] Special dulce needs: No Agree to transfusion: Yes Physical Exam Const: GENERAL APPEARANCE: cooperative ORIENTATION/CONSCIOUSNESS: Yes awake HENMT: COMMON NORMALS: normocephalic, atraumatic and hearing grossly normal bilaterally HEAD & SCALP: normocephalic and atraumatic Resp: COMMON NORMALS: normal respiratory effort, No retractions, No use of accessory muscles and clear to auscultation bilaterally AUSCULTATION: clear to auscultation bilaterally Cardio: COMMON NORMALS: regular rate, regular rhythm and No murmurs present (Cardio) RATE: regular rate RHYTHM: regular rhythm GI: COMMON NORMALS: Soft to palpation and No hepatosplenomegaly present AUSCULTATION: Yes normoactive bowel sounds PALPATION: Yes Soft to palpation, No Tenderness to palpation present (GI), No Guarding due to palpation present (GI) and Yes No hepatosplenomegaly present Extremity: COMMON NORMALS: normal to inspection, capillary refill normal, no clubbing, cyanosis or edema, no calf tenderness and no pedal edema Skin: COMMON NORMALS: no rashes or lesions noted GENERAL SKIN EXAM: no rashes or lesions noted Course Vital Signs: Vital signs: Vital Signs Temperature 98.8 F 12/12/24 19:45 Pulse Rate 94 12/12/24 19:45 Respiratory Rate 16 12/12/24 19:45 Blood Pressure 142/90 12/12/24 19:45 Pulse Oximetry 97 12/12/24 19:45 MDM - Psych Medical Decision Making Patient placed on 96-hour hold. We do not have rooms available here we will begin looking for placement at a another inpatient psychiatric facility. [facility] transferred via [facility] Lab Data 12/12/24 11:05 12/12/24 11:05 Laboratory Results WBC 7.48 10^3/uL (3.29-11.43) 12/12/24 11:05 RBC 5.42 10^6/uL (3.85-5.65) 12/12/24 11:05 Hgb 15.70 g/dL (11.27-16.99) 12/12/24 11:05 Hct 46.5 % (37-53) 12/12/24 11:05 MCV 85.8 fl (82-101) 12/12/24 11:05 MCH 29.0 pg (27-33) 12/12/24 11:05 MCHC 33.8 g/dL (30-55) 12/12/24 11:05 RDW 13.6 % (12.1-15.1) 12/12/24 11:05 Plt Count 226 10^3/cmm (157-399) 12/12/24 11:05 MPV 10.6 fL (7.4-10.4) H 12/12/24 11:05 Neut % (Auto) 70.1 % 12/12/24 11:05 Lymph % (Auto) 18.3 % 12/12/24 11:05 Yates % (Auto) 8.2 % 12/12/24 11:05 Eos % (Auto) 2.0 % 12/12/24 11:05 Baso % (Auto) 1.1 % 12/12/24 11:05 Neut # (Auto) 5.25 10^3/uL (1.8-7.7) 12/12/24 11:05 Lymph # (Auto) 1.4 10^3/uL (0.8-4.8) 12/12/24 11:05 Yates # (Auto) 0.6 10^3/uL (0.2-0.9) 12/12/24 11:05 Eos # (Auto) 0.2 10^3/uL (0.0-0.8) 12/12/24 11:05 Baso # (Auto) 0.1 10^3/uL (0.0-0.1) 12/12/24 11:05 Nucleated RBC % (auto) 0 % 12/12/24 11:05 Nucleated RBCs # 0.0 /100WBC 12/12/24 11:05 Sodium 138 mmol/L (136-145) 12/12/24 11:05 Potassium 4.0 mmol/L (3.5-5.1) 12/12/24 11:05 Chloride 106 mmol/L (98-107) 12/12/24 11:05 Carbon Dioxide 22 mmol/L (22-29) 12/12/24 11:05 Anion Gap 14.0 (5-19) 12/12/24 11:05 BUN 13 mg/dL (6-20) 12/12/24 11:05 Creatinine 1.0 mg/dL (0.7-1.2) 12/12/24 11:05 GFR Calculation 86.6 mL/min (90-130) L 12/12/24 11:05 Glucose 89 mg/dL (65-115) 12/12/24 11:05 Calculated Osmolality 286 mOsm/kg (285-295) 12/12/24 11:05 Calcium 9.2 mg/dL (8.5-10.5) 12/12/24 11:05 Total Bilirubin 0.5 mg/dL (0.15-1.2) 12/12/24 11:05 AST 14 U/L (0-40) 12/12/24 11:05 ALT 20 U/L (0-41) 12/12/24 11:05 Alkaline Phosphatase 84 U/L (40-130) 12/12/24 11:05 Total Protein 7.4 g/dL (6.6-8.7) 12/12/24 11:05 Albumin 4.6 g/dL (3.5-5.2) 12/12/24 11:05 Globulin 2.8 g/dL (1.3-4.6) 12/12/24 11:05 Urine Color Yellow (Yellow) 12/12/24 11:14 Urine Appearance Clear (CLEAR) 12/12/24 11:14 Urine pH 6.0 (5-7) 12/12/24 11:14 Ur Specific Dickens 1.008 (1.005-1.030) 12/12/24 11:14 Urine Protein Negative (Negative) 12/12/24 11:14 Urine Glucose (UA) Negative (Normal) 12/12/24 11:14 Urine Ketones Negative (Negative) 12/12/24 11:14 Urine Blood Negative (Negative) 12/12/24 11:14 Urine Nitrate Negative (Negative) 12/12/24 11:14 Urine Bilirubin Negative (Negative) 12/12/24 11:14 Urine Urobilinogen 0.2 mg/dL (Negative) 12/12/24 11:14 Ur Leukocyte Esterase Negative (Negative) 12/12/24 11:14 Urine RBC 0-2 /hpf (0-2) 12/12/24 11:14 Urine WBC 0-5 /hpf (0-5) 12/12/24 11:14 Ur Squamous Epith Cells 0-5 /hpf (0-5) 12/12/24 11:14 Amorphous Sediment Not Reportable 12/12/24 11:14 Urine Bacteria None seen /hpf (NONE) 12/12/24 11:14 Hyaline Casts 0-4 /lpf H 12/12/24 11:14 Salicylates < 0.3 mg/dL (3-10) L 12/12/24 11:05 Urine Opiates Screen Negative ng/mL (Negative) 12/12/24 11:14 Acetaminophen < 5.0 ug/mL (10-30) L 12/12/24 11:05 Ur Barbiturates Screen Negative ng/mL (Negative) 12/12/24 11:14 Ur Phencyclidine Scrn Negative ng/mL (Negative) 12/12/24 11:14 Ur Amphetamines Screen Negative ng/mL (Negative) 12/12/24 11:14 U Benzodiazepines Scrn Negative ng/mL (Negative) 12/12/24 11:14 Urine Cocaine Screen Negative ng/mL (Negative) 12/12/24 11:14 U Marijuana (THC) Screen Negative ng/mL (Negative) 12/12/24 11:14 Ethyl Alcohol < 10 mg/dL (0-10) 12/12/24 11:05 Influenza A (PCR) Negative (Negative) 12/12/24 11:47 Influenza Type B (PCR) Negative (Negative) 12/12/24 11:47 RSV (PCR) Negative (Negative) 12/12/24 11:47 SARS-CoV-2 (PCR) Negative (Negative) 12/12/24 11:47 No radiology studies performed this visit Discharge Plan Discharge Patient Disposition: Xfer Psychiatric Hosp Clinical Impression: Suicidal ideation, Bipolar depression, Borderline personality disorder in adult Condition: Stable Referrals: Matthew Schultz MD [Primary Care Provider, Family Practice] Print Language: [place] Coding Level of Care Code ED 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
[2024-12-12 11:11] LABS: Basophils # 0.1 10^3/uL (0.0-0.1); Basophils % 1.1 %; Eosinophils # 0.2 10^3/uL (0.0-0.8); Hematocrit 46.5 % (37-53); Lymphocytes # 1.4 10^3/uL (0.8-4.8); Lymphocytes % 18.3 %; Mean Corpuscular HGB Conc 33.8 g/dL (30-55); Mean Corpuscular Volume 85.8 fl (82-101); Mean Platelet Volume 10.6 fL (7.4-10.4); Monocytes # 0.6 10^3/uL (0.2-0.9); Monocytes % 8.2 %; Neutrophils # 5.25 10^3/uL (1.8-7.7); Neutrophils % 70.1 %; Nucleated Red Blood Cells % 0 %; Platelet Count 226 10^3/cmm (157-399); Red Blood Count 5.42 10^6/uL (3.85-5.65); Red Cell Distribution Width 13.6 % (12.1-15.1); White Blood Count 7.48 10^3/uL (3.29-11.43)
[2024-12-12 11:31] LABS: Alanine Aminotransferase 20 U/L (0-41); Albumin Level 4.6 g/dL (3.5-5.2); Alkaline Phosphatase 84 U/L (40-130); Aspartate Amino Transferase 14 U/L (0-40); Blood Urea Nitrogen 13 mg/dL (6-20); Calcium 9.2 mg/dL (8.5-10.5); Carbon Dioxide 22 mmol/L (22-29); Chloride 106 mmol/L (98-107); Creatinine Clr Calc Pharmacy 120.7824; Globulin 2.8 g/dL (1.3-4.6); Glomerular Filtration Rate 86.6 mL/min (90-130); Glucose 89 mg/dL (65-115); Osmolality Calculated 286 mOsm/kg (285-295); Sodium 138 mmol/L (136-145); Total Bilirubin 0.5 mg/dL (0.15-1.2); Total Protein 7.4 g/dL (6.6-8.7)
[2024-12-12 11:33] LABS: Acetaminophen < 5.0 ug/mL (10-30); Alcohol Level < 10 mg/dL (0-10); Salicylate < 0.3 mg/dL (3-10)
[2024-12-12 11:36] LABS: Amphetamines Screen Urine Negative (Negative); Barbiturates Screen Urine Negative (Negative); Benzodiazepines Screen Urine Negative (Negative); Cocaine Screen Urine Negative (Negative); Opiate Screen Urine Negative (Negative); PCP Screen Urine Negative (Negative); THC Screen Urine Negative (Negative)
[2024-12-12 12:26] LABS: Influenza A NEGATIVE (Negative); Influenza B NEGATIVE (Negative); Respiratory Syncytial Virus Ce NEGATIVE (Negative); SARS-CoV-2 PCR NEGATIVE (Negative)
--- NOTE | 2024-12-12 13:02 | PC.NURSE ---
96 hr rights reviewed with pt @1140 with assistance of [facility] chief business development officer Mikel Gaines All education reviewed with patient at this time. No verbalized questions or comments for HS. Pt copy was left with pt @bedside. Pt provided a sandwich and soda until lunch tray could be delivered. No further verbalized needs.
[2024-12-12] MEDS: LORazepam 2 mg Tablet PO (16:05)
[2024-12-12 18:50] LABS: Bilirubin Urine Negative (Negative); Blood Urine Negative (Negative); Glucose Urine UA Negative (Normal); Ketones Urine Negative (Negative); Leukocyte Esterase Urine Negative (Negative); Nitrate Urine Negative (Negative); Protein Urine Negative (Negative); Specific Gravity, Urine 1.008 (1.005-1.030); Urine Appearance Clear (CLEAR); Urine Color Yellow (Yellow); Urobilinogen Urine 0.2 mg/dL (Negative)
[2024-12-12 18:55] LABS: Bacteria Urine None Seen /hpf; Hyaline Casts Urine 0-4 /lpf; RBC Urine 0-2 /hpf (0-2); Squamous Epithelial Cell Urine 0-5 /hpf (0-5); WBC Urine 0-5 /hpf (0-5)
[2024-12-12 19:26] VITALS: BP 142/90; PULSE 94; RESP 16; TEMP 37.1; O2SAT 97
[2024-12-12 19:45] VITALS: BP 142/90; PULSE 94; RESP 16; TEMP 37.1; O2SAT 97
[2024-12-12] MEDS: ARIPiprazole 10 mg Tablet 15 MG PO (20:05)
[2024-12-12] MEDS: quetiapine 25 mg Tablet 50 MG PO (20:05)
[2024-12-12] MEDS: pantoprazole DR 40 mg Tablet PO (20:05)
== END 2024-12-12 20:15 ==
PROVIDERS: Emergency Provider Family Medicine; PCP Family Medicine
DX: R45.851 Suicidal ideations (principal); F31.30 Bipolar disorder, current episode depressed, mild or moderate severity, unspecified; F60.3 Borderline personality disorder; Z11.52 Encounter for screening for COVID-19
CPT/HCPCS: 80053; 80306; 80307; 81001; 85025; 87637; 99283; J9999